=== PATIENT | male | born 1990 | race Caucasian/White ===

== ENCOUNTER 2017-01-08 13:44 | Outpatient (CLI) | payer MEDICAID ==
[2017-01-08 14:08] LABS: BASOPHILS % (AUTO) 0.4 %; EOSINOPHILS # (AUTO) 0.1 10^3/uL (0.0-0.7); EOSINOPHILS % (AUTO) 1.2 %; HCT - HEMATOCRIT 38.2 % (42.0-52.0); HGB - HEMOGLOBIN 13.1 g/dL (14.0-18.0); LYMPHOCYTES # (AUTO) 1.8 10^3/uL (1.5-3.5); LYMPHOCYTES % (AUTO) 17.7 %; MEAN CORPUSCULAR HGB CONC 34.4 g/dL (32.0-36.0); MEAN CORPUSCULAR VOLUME 81.3 fL (80.0-94.0); MEAN PLATELET VOLUME 7.7 fL (7.4-11.4); MONOCYTES # (AUTO) 0.6 10^3/uL (0.0-1.0); MONOCYTES % (AUTO) 6.2 %; NEUTROPHILS # (AUTO) 7.7 10^3/uL (1.5-6.6); NEUTROPHILS % (AUTO) 74.5 %; RED CELL DISTRIBUTION WIDTH 14.8 % (12.0-15.0); UNCORRECTED WHITE BLOOD COUNT 10.3 x10^3/uL; WHITE BLOOD COUNT 10.3 x10^3/uL (4.8-10.8)
== END 2017-01-08 13:45 | disposition home or self-care (01) ==
LOC: LAB 13:44
PROVIDERS: ATTEND Internal Medicine Critical Care Medicine
DX: E84.0 Cystic fibrosis with pulmonary manifestations (principal)
CPT/HCPCS: 36415; 85025

== ENCOUNTER 2017-01-15 09:36 | Outpatient (CLI) | payer MEDICAID ==
[2017-01-15 10:58] LABS: BASOPHILS # (AUTO) 0.1 10^3/uL (0.0-0.1); EOSINOPHILS # (AUTO) 0.2 10^3/uL (0.0-0.7); EOSINOPHILS % (AUTO) 2.8 %; HCT - HEMATOCRIT 41.3 % (42.0-52.0); HGB - HEMOGLOBIN 13.8 g/dL (14.0-18.0); LYMPHOCYTES # (AUTO) 1.9 10^3/uL (1.5-3.5); LYMPHOCYTES % (AUTO) 33.1 %; MEAN CORPUSCULAR HEMOGLOBIN 27.9 pg (27.0-31.0); MEAN CORPUSCULAR HGB CONC 33.5 g/dL (32.0-36.0); MEAN CORPUSCULAR VOLUME 83.3 fL (80.0-94.0); MEAN PLATELET VOLUME 8.3 fL (7.4-11.4); MONOCYTES # (AUTO) 0.3 10^3/uL (0.0-1.0); MONOCYTES % (AUTO) 5.9 %; NEUTROPHILS # (AUTO) 3.3 10^3/uL (1.5-6.6); NEUTROPHILS % (AUTO) 57.2 %; RED BLOOD COUNT 4.97 10^6/uL (4.70-6.10); RED CELL DISTRIBUTION WIDTH 15.2 % (12.0-15.0); UNCORRECTED WHITE BLOOD COUNT 5.7 x10^3/uL; WHITE BLOOD COUNT 5.7 x10^3/uL (4.8-10.8)
== END 2017-01-15 09:37 | disposition home or self-care (01) ==
LOC: LAB 09:36
PROVIDERS: ATTEND Internal Medicine Critical Care Medicine
DX: E84.0 Cystic fibrosis with pulmonary manifestations (principal)
CPT/HCPCS: 36415; 85025

== ENCOUNTER 2017-01-22 09:20 | Outpatient (CLI) | payer MEDICAID ==
[2017-01-22 09:33] LABS: BASOPHILS % (AUTO) 0.9 %; EOSINOPHILS # (AUTO) 0.2 10^3/uL (0.0-0.7); EOSINOPHILS % (AUTO) 3.9 %; HCT - HEMATOCRIT 43.3 % (42.0-52.0); HGB - HEMOGLOBIN 14.7 g/dL (14.0-18.0); LYMPHOCYTES # (AUTO) 1.4 10^3/uL (1.5-3.5); LYMPHOCYTES % (AUTO) 28.1 %; MEAN CORPUSCULAR HEMOGLOBIN 28.5 pg (27.0-31.0); MEAN CORPUSCULAR HGB CONC 34.1 g/dL (32.0-36.0); MEAN CORPUSCULAR VOLUME 83.6 fL (80.0-94.0); MEAN PLATELET VOLUME 7.8 fL (7.4-11.4); MONOCYTES # (AUTO) 0.3 10^3/uL (0.0-1.0); MONOCYTES % (AUTO) 5.9 %; NEUTROPHILS # (AUTO) 3.1 10^3/uL (1.5-6.6); NEUTROPHILS % (AUTO) 61.2 %; RED BLOOD COUNT 5.18 10^6/uL (4.70-6.10); RED CELL DISTRIBUTION WIDTH 16.2 % (12.0-15.0); UNCORRECTED WHITE BLOOD COUNT 5.1 x10^3/uL; WHITE BLOOD COUNT 5.1 x10^3/uL (4.8-10.8)
== END 2017-01-22 09:21 | disposition home or self-care (01) ==
LOC: LAB 09:20
PROVIDERS: ATTEND Internal Medicine Critical Care Medicine
DX: E84.0 Cystic fibrosis with pulmonary manifestations (principal)
CPT/HCPCS: 36415; 85025

== ENCOUNTER 2017-02-03 08:10 | Outpatient (CLI) | payer MEDICAID ==
[2017-02-03 08:55] LABS: BUN - BLOOD UREA NITROGEN 8 mg/dL (6-20); CALCIUM 9.2 mg/dL (8.5-10.3); CARBON DIOXIDE - CO2 31 mmol/L (21-32); CHLORIDE 101 mmol/L (101-111); CREATININE 0.8 mg/dL (0.6-1.2); GFR - MDRD 118 (>89); GLUCOSE 89 mg/dL (70-100); POTASSIUM 4.5 mmol/L (3.5-5.0); SODIUM 138 mmol/L (135-145)
[2017-02-03 09:02] LABS: BASOPHILS % (AUTO) 0.7 %; EOSINOPHILS # (AUTO) 0.3 10^3/uL (0.0-0.7); EOSINOPHILS % (AUTO) 4.5 %; HCT - HEMATOCRIT 42.9 % (42.0-52.0); HGB - HEMOGLOBIN 14.8 g/dL (14.0-18.0); LYMPHOCYTES # (AUTO) 1.4 10^3/uL (1.5-3.5); LYMPHOCYTES % (AUTO) 21.4 %; MEAN CORPUSCULAR HEMOGLOBIN 28.6 pg (27.0-31.0); MEAN CORPUSCULAR HGB CONC 34.4 g/dL (32.0-36.0); MEAN PLATELET VOLUME 8.1 fL (7.4-11.4); MONOCYTES # (AUTO) 0.6 10^3/uL (0.0-1.0); MONOCYTES % (AUTO) 8.6 %; NEUTROPHILS # (AUTO) 4.2 10^3/uL (1.5-6.6); NEUTROPHILS % (AUTO) 64.8 %; NUCLEATED RED BLOOD CELLS AUTO 0.3 /100WBC; RED BLOOD COUNT 5.16 10^6/uL (4.70-6.10); RED CELL DISTRIBUTION WIDTH 16.2 % (12.0-15.0); UNCORRECTED WHITE BLOOD COUNT 6.4 x10^3/uL; WHITE BLOOD COUNT 6.4 x10^3/uL (4.8-10.8)
[2017-02-03 09:46] LABS: PLATELET ESTIMATE, MANUAL NORMAL (130-450,000) (NORMAL); PLATELET MORPHOLOGY NORMAL APPEARANCE (NORMAL); WBC MORPHOLOGY (MULTIPLE) NORMAL APPEARANCE (NORMAL)
== END 2017-02-03 08:11 | disposition home or self-care (01) ==
LOC: LAB 08:10
PROVIDERS: ATTEND Internal Medicine Critical Care Medicine
DX: E84.0 Cystic fibrosis with pulmonary manifestations (principal)
CPT/HCPCS: 36415; 80048; 85025

== ENCOUNTER 2017-02-12 07:59 | Outpatient (CLI) | payer MEDICAID ==
[2017-02-12 08:10] LABS: BASOPHILS % (AUTO) 0.4 %; EOSINOPHILS # (AUTO) 0.2 10^3/uL (0.0-0.7); EOSINOPHILS % (AUTO) 3.7 %; HCT - HEMATOCRIT 42.5 % (42.0-52.0); HGB - HEMOGLOBIN 14.6 g/dL (14.0-18.0); LYMPHOCYTES # (AUTO) 1.4 10^3/uL (1.5-3.5); MEAN CORPUSCULAR HEMOGLOBIN 28.6 pg (27.0-31.0); MEAN CORPUSCULAR HGB CONC 34.3 g/dL (32.0-36.0); MEAN CORPUSCULAR VOLUME 83.4 fL (80.0-94.0); MEAN PLATELET VOLUME 7.7 fL (7.4-11.4); MONOCYTES # (AUTO) 0.4 10^3/uL (0.0-1.0); NEUTROPHILS # (AUTO) 4.6 10^3/uL (1.5-6.6); NEUTROPHILS % (AUTO) 68.9 %; NUCLEATED RED BLOOD CELLS AUTO 0.2 /100WBC; RED BLOOD COUNT 5.09 10^6/uL (4.70-6.10); RED CELL DISTRIBUTION WIDTH 15.7 % (12.0-15.0); UNCORRECTED WHITE BLOOD COUNT 6.6 x10^3/uL; WHITE BLOOD COUNT 6.6 x10^3/uL (4.8-10.8)
[2017-02-12 08:22] LABS: BUN - BLOOD UREA NITROGEN 11 mg/dL (6-20); CALCIUM 8.9 mg/dL (8.5-10.3); CARBON DIOXIDE - CO2 29 mmol/L (21-32); CHLORIDE 104 mmol/L (101-111); CREATININE 0.8 mg/dL (0.6-1.2); GFR - MDRD 118 (>89); GLUCOSE 91 mg/dL (70-100); POTASSIUM 4.6 mmol/L (3.5-5.0); SODIUM 138 mmol/L (135-145)
== END 2017-02-12 08:00 | disposition home or self-care (01) ==
LOC: LAB 07:59
PROVIDERS: ATTEND Internal Medicine Critical Care Medicine
DX: E84.9 Cystic fibrosis, unspecified (principal)
CPT/HCPCS: 36415; 80048; 85025

== ENCOUNTER 2017-03-19 10:18 | Outpatient (CLI) | payer MEDICAID ==
[2017-03-19 11:46] LABS: ABG HCO3 23.4 mmol/L (22.0-26.0); ABG PCO2 35 mmHg (34-45); ABG PH 7.45 (7.35-7.45); ABG PO2 75 mmHg (80-100); ABG TCO2 24.5 MMOL/L (21.0-29.0)
[2017-03-19 11:47] LABS: ABG OXYGEN SATURATION 96 % (94-98); ABG RESPIRATORY RATE 18 b/min; ABG ROOM AIR YES; ABG SATURATION PULSE OXIMETRY% 97 %; ABG SITE OF DRAW RIGHT RADIAL; ALLEN TEST POSITIVE
== END 2017-03-19 10:19 | disposition home or self-care (01) ==
LOC: LAB 10:18
PROVIDERS: ATTEND Internal Medicine Critical Care Medicine
DX: E84.0 Cystic fibrosis with pulmonary manifestations (principal)
CPT/HCPCS: 36600; 82803

== ENCOUNTER 2017-11-21 18:41 | Emergency (ER) | payer MEDICAID ==
[2017-11-21] MEDS ORDERED: METOCLOPRAMIDE 10 MG/2 ML VIAL IVP STA (19:05)
[2017-11-21] MEDS ORDERED: SODIUM CHLORIDE 0.9% 1,000 ML IV ONE (19:05)
[2017-11-21] MEDS ORDERED: KETOROLAC 60 MG/2 ML VIAL IVP STA (19:05)
[2017-11-21] MEDS ORDERED: diphenhydrAMINE INJ 50 MG/ML VIAL IVP STA (19:05)
--- NOTE | 2017-11-21 19:06 | ED Physician Documentation ---
PD HPI HEADACHE - Stated complaint Stated Complaint: HEADACHE,DIZZY - Chief complaint Chief Complaint: General - History obtained from History obtained from: Patient, Family - History of Present Illness Timing - onset: Yesterday Timing - onset during: Rest Timing - details: Gradual onset, Intermittant Location: Back Quality: Aching Associated symptoms: Vision changes. No: Fever, Stiff neck Improved by: Rest Similar symptoms before: Has not had sx before Recently seen: Not recently seen - Additional information Additional information: Patient is a 27 year old male with a history of cystic fibrosis who is presenting to the emergency department for headache. patient states that the symptoms started yesterday with some blurry vision. patient's vision changes have since resolved. Patient states that he still has the headache. patient denie any aggravating or alleviating factors. Review of Systems Ten Systems: 10 systems reviewed and negative Constitutional: denies: Chills Musculoskeletal: denies: Neck pain Neurologic: reports: Headache. denies: Altered mental status, Head injury PD PAST MEDICAL HISTORY - Past Medical History Respiratory: Cystic fibrosis - Past Surgical History Past Surgical History: Yes - Present Medications Home Medications: Ambulatory Orders Medication Instructions Recorded Confirmed Domase Alpha2.5mg/2.5mlinhal Solu 2.5 mg IH DAILY 02/22/13 09/01/17 Lipase/Protease/Amylase [Zenpep Dr 3 each PO TIDWM 02/22/13 09/01/17 15,000/51,000/82,000 Intermediate] Sodium Chloride For Inhalation 15 ml IH BID 02/22/13 09/01/17 [Sodium Chloride] Albuterol Sulfate [Ventolin Hfa] 2 puffs INH Q6HR PRN 08/31/15 09/01/17 - Allergies Allergies/Adverse Reactions: Allergies Allergy/AdvReac Type Severity Reaction Status Date / Time sulfamethoxazole AdvReac Severe Emesis Verified 02/22/13 08:49 [From Bactrim] trimethoprim [From Bactrim] AdvReac Severe Emesis Verified 11/21/17 18:50 - Social History Does the pt smoke?: No Smoking Status: Never smoker Does the pt drink ETOH?: Yes Does the pt have substance abuse?: No - POLST Patient has POLST: No PD ED PE NORMAL - Vitals Vital signs reviewed: Yes - General General: Alert and oriented X 3, No acute distress, Well developed/nourished - HEENT HEENT: Atraumatic - Neck Neck: Supple, no meningeal sign - Cardiac Cardiac: RRR - Respiratory Respiratory: No respiratory distress - Derm Derm: Normal color, Warm and dry - Extremities Extremities: No deformity Results - Vitals Vitals: Vital Signs - 24 hr 11/21/17 11/21/17 11/21/17 18:48 20:09 20:16 Temperature 36.7 C Heart Rate 79 77 Respiratory 18 16 16 Rate Blood Pressure 111/67 110/61 O2 Saturation 99 97 11/21/17 20:41 Temperature Heart Rate Respiratory 16 Rate Blood Pressure 96/69 O2 Saturation Oxygen O2 Source Room air - Rads (name of study) ct head Radiology: Final report received (normal) PD MEDICAL DECISION MAKING - ED course Complexity details: reviewed old records, reviewed results, re-evaluated patient , considered differential, d/w patient, d/w family ED course: patient was seen and examined at bedside. imaging was ordered. When patient returned from imaging patient was treated with toradol, fluids, reglan and benadryl. Upon re-evaluaiton patient was feeling much better. patient required no further work up and was stable for discharge with outpatient follow up. - Sepsis Event Vital Signs: Vital Signs - 24 hr 11/21/17 11/21/17 11/21/17 18:48 20:09 20:16 Temperature 36.7 C Heart Rate 79 77 Respiratory 18 16 16 Rate Blood Pressure 111/67 110/61 O2 Saturation 99 97 11/21/17 20:41 Temperature Heart Rate Respiratory 16 Rate Blood Pressure 96/69 O2 Saturation Oxygen O2 Source Room air Departure - Departure Disposition: 01 Home, Self Care Clinical Impression: Headache Condition: Good Instructions: ED Headache Tension Follow-Up: Marie Ovalle MD [Primary Care Provider] - As Needed Comments: Your diagnostics today are within normal limits. there is no acute abnormality on CT. You should make sure you stay well hydrated and get plenty of sleep as those are two of the biggest culprits. You can take tylenol or ibuprofen as needed and follow up with your doctor if these headache get more frequent. You may return to the emergency department at any time for new, worsening or uncontrollable symptoms.
--- NOTE | 2017-11-21 19:33 | CT Report ---
Procedure Date: 11/21/2017 Accession Number: [id number] / [id number] Procedure: CT - Head W/O CPT Code: FULL RESULT: EXAM: CT HEAD EXAM DATE: 11/21/2017 07:23 PM. CLINICAL HISTORY: Headache. Blurred vision. Dizziness. COMPARISON: None. TECHNIQUE: Multiaxial CT images were obtained from the foramen magnum to the vertex. Reformats: Coronal. IV contrast: None. In accordance with CT protocol optimization, one or more of the following dose reduction techniques were utilized for this exam: automated exposure control, adjustment of mA and/or KV based on patient size, or use of iterative reconstructive technique. FINDINGS: Parenchyma: No intraparenchymal hemorrhage. No evidence of mass, midline shift, or CT findings of infarction. Alvares-white differentiation is distinct. Extraaxial Spaces: Normal for age. No subdural or epidural collections identified. Ventricles: Normal in size and position. Sinuses and Orbits: Marked bilateral ethmoid and left sphenoid sinus mucosal thickening. Frontal sinuses are hypoplastic. Mastoids and middle ears are clear. Orbits are unremarkable. Bones: Persistent metopic suture. No fracture. Other: None. IMPRESSION: 1. Marked bilateral ethmoid and left sphenoid sinus mucosal thickening consistent with sinusitis. 2. Normal noncontrast CT of the brain. RADIA
[2017-11-21 21:01] VITALS: BP 108/69
== END 2017-11-21 21:04 | disposition home or self-care (01) ==
LOC: ED 18:41
DX: R51 Headache (principal); E84.9 Cystic fibrosis, unspecified
CPT/HCPCS: 70450; 96361; 96374; 96375; 99283; J1200; J2765

== ENCOUNTER 2018-02-17 12:11 | Outpatient (CLI) | payer MEDICAID ==
[2018-02-17 13:26] LABS: BASOPHILS % (AUTO) 0.4 %; EOSINOPHILS # (AUTO) 0.1 10^3/uL (0.0-0.7); EOSINOPHILS % (AUTO) 1.2 %; HGB - HEMOGLOBIN 13.4 g/dL (14.0-18.0); LYMPHOCYTES # (AUTO) 1.3 10^3/uL (1.5-3.5); LYMPHOCYTES % (AUTO) 11.8 %; MEAN CORPUSCULAR HEMOGLOBIN 27.7 pg (27.0-31.0); MEAN CORPUSCULAR HGB CONC 34.3 g/dL (32.0-36.0); MEAN CORPUSCULAR VOLUME 80.7 fL (80.0-94.0); MEAN PLATELET VOLUME 8.5 fL (7.4-11.4); MONOCYTES # (AUTO) 0.7 10^3/uL (0.0-1.0); MONOCYTES % (AUTO) 6.6 %; NEUTROPHILS # (AUTO) 8.8 10^3/uL (1.5-6.6); PLT - PLATELET COUNT 238 10^3/uL (130-450); RED BLOOD COUNT 4.85 10^6/uL (4.70-6.10); RED CELL DISTRIBUTION WIDTH 14.2 % (12.0-15.0)
== END 2018-02-17 12:12 | disposition home or self-care (01) ==
LOC: LAB 12:11
PROVIDERS: ATTEND Internal Medicine Pulmonary Disease
DX: E84.9 Cystic fibrosis, unspecified (principal)
CPT/HCPCS: 36415; 85025

== ENCOUNTER 2018-02-20 08:24 | Outpatient (CLI) | payer MEDICAID ==
[2018-02-20 08:39] LABS: BASOPHILS # (AUTO) 0.1 10^3/uL (0.0-0.1); BASOPHILS % (AUTO) 0.6 %; EOSINOPHILS # (AUTO) 0.2 10^3/uL (0.0-0.7); EOSINOPHILS % (AUTO) 3.2 %; HGB - HEMOGLOBIN 13.7 g/dL (14.0-18.0); LYMPHOCYTES # (AUTO) 1.2 10^3/uL (1.5-3.5); LYMPHOCYTES % (AUTO) 15.5 %; MEAN CORPUSCULAR HEMOGLOBIN 27.9 pg (27.0-31.0); MEAN CORPUSCULAR HGB CONC 34.2 g/dL (32.0-36.0); MEAN CORPUSCULAR VOLUME 81.5 fL (80.0-94.0); MEAN PLATELET VOLUME 7.9 fL (7.4-11.4); MONOCYTES # (AUTO) 0.4 10^3/uL (0.0-1.0); MONOCYTES % (AUTO) 4.6 %; NEUTROPHILS # (AUTO) 5.9 10^3/uL (1.5-6.6); NEUTROPHILS % (AUTO) 76.1 %; PLT - PLATELET COUNT 223 10^3/uL (130-450); RED BLOOD COUNT 4.93 10^6/uL (4.70-6.10); RED CELL DISTRIBUTION WIDTH 14.4 % (12.0-15.0); WHITE BLOOD COUNT 7.8 x10^3/uL (4.8-10.8)
== END 2018-02-20 08:25 | disposition home or self-care (01) ==
LOC: LAB 08:24
PROVIDERS: ATTEND Internal Medicine Pulmonary Disease
DX: E84.0 Cystic fibrosis with pulmonary manifestations (principal)
CPT/HCPCS: 36415; 85025

== ENCOUNTER 2018-02-25 08:53 | Outpatient (CLI) | payer MEDICAID ==
[2018-02-25 09:18] LABS: BASOPHILS % (AUTO) 0.5 %; EOSINOPHILS # (AUTO) 0.2 10^3/uL (0.0-0.7); EOSINOPHILS % (AUTO) 3.2 %; HGB - HEMOGLOBIN 13.4 g/dL (14.0-18.0); LYMPHOCYTES # (AUTO) 1.3 10^3/uL (1.5-3.5); LYMPHOCYTES % (AUTO) 22.2 %; MEAN CORPUSCULAR HEMOGLOBIN 27.6 pg (27.0-31.0); MEAN CORPUSCULAR HGB CONC 33.7 g/dL (32.0-36.0); MEAN PLATELET VOLUME 7.6 fL (7.4-11.4); MONOCYTES # (AUTO) 0.3 10^3/uL (0.0-1.0); MONOCYTES % (AUTO) 4.3 %; NEUTROPHILS # (AUTO) 4.1 10^3/uL (1.5-6.6); NEUTROPHILS % (AUTO) 69.8 %; PLT - PLATELET COUNT 221 10^3/uL (130-450); RED BLOOD COUNT 4.84 10^6/uL (4.70-6.10); RED CELL DISTRIBUTION WIDTH 14.4 % (12.0-15.0); WHITE BLOOD COUNT 5.8 x10^3/uL (4.8-10.8)
== END 2018-02-25 08:54 | disposition home or self-care (01) ==
LOC: LAB 08:53
PROVIDERS: ATTEND Internal Medicine Pulmonary Disease
DX: E84.0 Cystic fibrosis with pulmonary manifestations (principal)
CPT/HCPCS: 36415; 85025

== ENCOUNTER 2018-06-04 09:13 | Outpatient (CLI) | payer MEDICAID ==
[2018-06-04 09:40] LABS: BASOPHILS % (AUTO) 0.3 %; EOSINOPHILS # (AUTO) 0.1 10^3/uL (0.0-0.7); EOSINOPHILS % (AUTO) 1.8 %; HGB - HEMOGLOBIN 14.1 g/dL (14.0-18.0); LYMPHOCYTES # (AUTO) 1.3 10^3/uL (1.5-3.5); LYMPHOCYTES % (AUTO) 17.9 %; MEAN CORPUSCULAR HEMOGLOBIN 27.8 pg (27.0-31.0); MEAN CORPUSCULAR VOLUME 81.7 fL (80.0-94.0); MEAN PLATELET VOLUME 8.1 fL (7.4-11.4); MONOCYTES # (AUTO) 0.3 10^3/uL (0.0-1.0); MONOCYTES % (AUTO) 4.6 %; NEUTROPHILS # (AUTO) 5.3 10^3/uL (1.5-6.6); NEUTROPHILS % (AUTO) 75.4 %; PLT - PLATELET COUNT 246 10^3/uL (130-450); RED BLOOD COUNT 5.06 10^6/uL (4.70-6.10); RED CELL DISTRIBUTION WIDTH 14.1 % (12.0-15.0)
== END 2018-06-04 09:14 | disposition home or self-care (01) ==
LOC: LAB 09:13
PROVIDERS: ATTEND Internal Medicine Pulmonary Disease
DX: E84.0 Cystic fibrosis with pulmonary manifestations (principal)
CPT/HCPCS: 36415; 85025

== ENCOUNTER 2018-06-09 09:57 | Outpatient (CLI) | payer MEDICAID ==
[2018-06-09 10:28] LABS: BASOPHILS % (AUTO) 0.2 %; EOSINOPHILS # (AUTO) 0.1 10^3/uL (0.0-0.7); EOSINOPHILS % (AUTO) 0.7 %; HGB - HEMOGLOBIN 14.9 g/dL (14.0-18.0); LYMPHOCYTES % (AUTO) 10.8 %; MEAN CORPUSCULAR HEMOGLOBIN 27.9 pg (27.0-31.0); MEAN CORPUSCULAR HGB CONC 33.9 g/dL (32.0-36.0); MEAN CORPUSCULAR VOLUME 82.4 fL (80.0-94.0); MEAN PLATELET VOLUME 8.7 fL (7.4-11.4); MONOCYTES # (AUTO) 0.5 10^3/uL (0.0-1.0); NEUTROPHILS # (AUTO) 7.7 10^3/uL (1.5-6.6); NEUTROPHILS % (AUTO) 83.3 %; PLT - PLATELET COUNT 247 10^3/uL (130-450); RED BLOOD COUNT 5.35 10^6/uL (4.70-6.10); RED CELL DISTRIBUTION WIDTH 14.2 % (12.0-15.0); WHITE BLOOD COUNT 9.3 x10^3/uL (4.8-10.8)
== END 2018-06-09 09:58 | disposition home or self-care (01) ==
LOC: LAB 09:57
PROVIDERS: ATTEND Internal Medicine Pulmonary Disease
DX: E84.0 Cystic fibrosis with pulmonary manifestations (principal)
CPT/HCPCS: 36415; 85025

== ENCOUNTER 2018-06-11 09:35 | Outpatient (CLI) | payer MEDICAID ==
[2018-06-11 10:13] LABS: BASOPHILS % (AUTO) 0.2 %; EOSINOPHILS # (AUTO) 0.1 10^3/uL (0.0-0.7); EOSINOPHILS % (AUTO) 0.9 %; HGB - HEMOGLOBIN 13.8 g/dL (14.0-18.0); LYMPHOCYTES # (AUTO) 1.1 10^3/uL (1.5-3.5); LYMPHOCYTES % (AUTO) 16.5 %; MEAN CORPUSCULAR HGB CONC 33.8 g/dL (32.0-36.0); MEAN CORPUSCULAR VOLUME 82.8 fL (80.0-94.0); MEAN PLATELET VOLUME 8.5 fL (7.4-11.4); MONOCYTES # (AUTO) 0.3 10^3/uL (0.0-1.0); MONOCYTES % (AUTO) 4.8 %; NEUTROPHILS # (AUTO) 5.1 10^3/uL (1.5-6.6); NEUTROPHILS % (AUTO) 77.6 %; PLT - PLATELET COUNT 209 10^3/uL (130-450); RED BLOOD COUNT 4.93 10^6/uL (4.70-6.10); RED CELL DISTRIBUTION WIDTH 14.3 % (12.0-15.0); WHITE BLOOD COUNT 6.6 x10^3/uL (4.8-10.8)
== END 2018-06-11 09:36 | disposition home or self-care (01) ==
LOC: LAB 09:35
PROVIDERS: ATTEND Internal Medicine Pulmonary Disease
DX: E89.0 Postprocedural hypothyroidism (principal)
CPT/HCPCS: 36415; 85025

== ENCOUNTER 2018-06-23 13:39 | Emergency (ER) | payer MEDICAID ==
[2018-06-23] MEDS ORDERED: SODIUM CHLORIDE 0.9% 1,500 ML IV STA (13:57)
[2018-06-23 14:14] LABS: BASOPHILS % (AUTO) 0.5 %; HGB - HEMOGLOBIN 12.9 g/dL (14.0-18.0); LYMPHOCYTES # (AUTO) 0.6 10^3/uL (1.5-3.5); LYMPHOCYTES % (AUTO) 6.8 %; MEAN CORPUSCULAR HEMOGLOBIN 28.1 pg (27.0-31.0); MEAN CORPUSCULAR HGB CONC 34.3 g/dL (32.0-36.0); MEAN CORPUSCULAR VOLUME 81.9 fL (80.0-94.0); MEAN PLATELET VOLUME 8.6 fL (7.4-11.4); MONOCYTES # (AUTO) 0.9 10^3/uL (0.0-1.0); MONOCYTES % (AUTO) 11.1 %; NEUTROPHILS # (AUTO) 6.7 10^3/uL (1.5-6.6); NEUTROPHILS % (AUTO) 81.6 %; PLT - PLATELET COUNT 223 10^3/uL (130-450); RED BLOOD COUNT 4.58 10^6/uL (4.70-6.10); RED CELL DISTRIBUTION WIDTH 14.6 % (12.0-15.0); WHITE BLOOD COUNT 8.3 x10^3/uL (4.8-10.8)
[2018-06-23] MEDS ORDERED: IPRATROPIUM/ALBUTEROL 3 ML NEB INH STA (14:23)
[2018-06-23] MEDS ORDERED: IPRATROPIUM/ALBUTEROL 3 ML NEB INH ONE (14:28)
[2018-06-23 14:36] LABS: ALBUMIN 3.5 g/dL (3.2-5.5); ALBUMIN/GLOBULIN RATIO 0.8 (1.0-2.2); BILIRUBIN,TOTAL 0.5 mg/dL (0.2-1.0); CALCIUM 8.4 mg/dL (8.5-10.3); CREATININE 0.7 mg/dL (0.6-1.2); TOTAL PROTEIN 7.8 g/dL (6.7-8.2)
[2018-06-23] MEDS ORDERED: HYPERTONIC INH STA (14:58)
[2018-06-23] MEDS ORDERED: SODIUM CHLORIDE 3% INH STA (14:58)
--- NOTE | 2018-06-23 15:08 | XRAY Report ---
Reason: SOA Procedure Date: 06/23/2018 Accession Number: [id number] / [id number] Procedure: XR - Chest 1 View X-Ray CPT Code: 40787 FULL RESULT: EXAM: CHEST RADIOGRAPHY EXAM DATE: 06/23/2018 02:25 PM. CLINICAL HISTORY: Cystic fibrosis, productive cough, short of breath. COMPARISON: CHEST 2 VIEW PA/LAT 09/19/2015 8:01 AM. TECHNIQUE: 1 view. FINDINGS: Lungs/Pleura: Extensive patchy bilateral infiltration with a finely nodular pattern. Underlying upper lobe chronic changes. No consolidation, effusion, or pneumothorax. Mediastinum: Within exam limitations, the cardiomediastinal contour is normal. Upper lobe vessels not distended. Other: Right Port-A-Cath. Scoliosis. IMPRESSION: Bilateral nodular infiltrates in a patient with underlying chronic lung disease. The nodular pattern suggests viral or mycoplasmal etiology. RADIA
[2018-06-23] MEDS ORDERED: SULFAMETH/TRIMETH DS 800/160 MG TABLET PO STA (16:40)
[2018-06-23] MEDS ORDERED: levoFLOXacin 250 MG TABLET PO STA (16:40)
[2018-06-23] MEDS ORDERED: ACETAMINOPHEN 500 MG TABLET PO STA (16:44)
--- NOTE | 2018-06-23 18:44 | ED Physician Documentation ---
PD HPI DYSPNEA - Stated complaint Stated Complaint: SOA - Chief complaint Chief Complaint: Resp - History obtained from History obtained from: Patient - History of Present Illness Timing - onset: How many hours ago (6) Timing - onset during: Light activity Timing - duration: Hours (6) Timing - details: Gradual onset Pain level max: 2 Pain level now: 2 Severity Comments: moderate Inciting event(s): Other (CF) Improved by: O2 Worsened by: Exertion Associated symptoms: Fever, Cough Similar symptoms before: Diagnosis (CF) Review of Systems Ten Systems: 10 systems reviewed and negative Constitutional: reports: Reviewed and negative Eyes: reports: Reviewed and negative Ears: reports: Reviewed and negative Nose: reports: Reviewed and negative Throat: reports: Reviewed and negative Cardiac: reports: Reviewed and negative Respiratory: reports: Reviewed and negative GI: reports: Reviewed and negative : reports: Reviewed and negative Skin: reports: Reviewed and negative Musculoskeletal: reports: Reviewed and negative Neurologic: reports: Reviewed and negative Psychiatric: reports: Reviewed and negative Endocrine: reports: Reviewed and negative Immunocompromised: reports: Reviewed and negative PD PAST MEDICAL HISTORY - Past Medical History Past Medical History: No Cardiovascular: None Respiratory: Cystic fibrosis Neuro: None Endocrine/Autoimmune: None GI: None : None HEENT: None Psych: None Musculoskeletal: None Derm: None - Past Surgical History Past Surgical History: Yes Derm: Other (Reviewed and not pertinent) - Present Medications Home Medications: Ambulatory Orders Medication Instructions Recorded Confirmed Domase Alpha2.5mg/2.5mlinhal Solu 2.5 mg IH DAILY 02/22/13 06/05/18 Lipase/Protease/Amylase [Zenpep Dr 3 each PO TIDWM 02/22/13 06/05/18 15,000/51,000/82,000 Longterm] Sodium Chloride For Inhalation 15 ml IH BID 02/22/13 06/05/18 [Sodium Chloride] Albuterol Sulfate [Ventolin Hfa] 2 puffs INH Q6HR PRN 08/31/15 06/05/18 Celecoxib [CeleBREX] 100 mg PO BID 05/05/18 06/05/18 Levofloxacin [Levaquin] 750 mg PO DAILY #14 tablet 06/23/18 Minocycline HCl 100 mg PO BID #28 capsule 06/23/18 Sulfamethox/Trimeth 800/160 2 each PO BID #28 tablet 01/15/19 [Bactrim Ds 800/160] - Allergies Allergies/Adverse Reactions: Allergies Allergy/AdvReac Type Severity Reaction Status Date / Time sulfamethoxazole AdvReac Severe Emesis Verified 02/22/13 08:49 [From Bactrim] trimethoprim [From Bactrim] AdvReac Severe Emesis Verified 11/21/17 18:50 - Living Situation Living Situation: reports: With family Living Arrangement: reports: At home - Social History Does the pt smoke?: No Smoking Status: Never smoker Does the pt drink ETOH?: No Does the pt have substance abuse?: No - Family History Family history: reports: Other (Reviewed and not pertinent) - Immunizations Immunizations are current?: Yes - POLST Patient has POLST: No PD ED PE NORMAL - Vitals Vital signs reviewed: Yes - General General: Alert and oriented X 3, No acute distress - HEENT HEENT: PERRL - Neck Neck: Supple, no meningeal sign - Cardiac Cardiac: RRR, No murmur - Respiratory Respiratory: Other (Coarse breath sounds, moderate respiratory distress) - Abdomen Abdomen: Normal bowel sounds, Soft, Non tender, Non distended - Derm Derm: Warm and dry - Extremities Extremities: No deformity - Neuro Neuro: Alert and oriented X 3 - Psych Psych: Normal mood, Normal affect Results - Vitals Vitals: Vital Signs - 24 hr 06/23/18 06/23/18 06/23/18 13:40 14:02 14:30 Temperature 37.9 C H 38.1 C H Heart Rate 136 H 124 H 113 H Respiratory 38 H 20 14 Rate Blood Pressure 143/78 H 116/64 O2 Saturation 92 95 98 06/23/18 06/23/18 06/23/18 14:35 15:00 15:19 Temperature Heart Rate 108 H 104 H 113 H Respiratory 24 20 30 H Rate Blood Pressure 118/70 O2 Saturation 99 06/23/18 06/23/18 06/23/18 15:30 15:58 16:30 Temperature 38.6 C H Heart Rate 109 H 114 H 108 H Respiratory 15 38 H 31 H Rate Blood Pressure 117/64 116/64 112/58 L O2 Saturation 8 L 95 98 06/23/18 06/23/18 06/23/18 17:00 17:30 18:51 Temperature 36.8 C 36.9 C Heart Rate 98 105 H 99 Respiratory 24 27 H 22 Rate Blood Pressure 102/49 L 102/48 L 98/67 O2 Saturation 96 96 94 Oxygen O2 Source Room air Oxygen Flow Rate 2 - Labs Labs: Microbiology 06/23/18 15:30 Respiratory Culture - Preliminary Mouth Laboratory Tests 06/23/18 06/23/18 06/23/18 14:00 14:00 14:00 WBC 8.3 RBC 4.58 L Hgb 12.9 L Hct 37.5 L MCV 81.9 MCH 28.1 MCHC 34.3 RDW 14.6 Plt Count 223 MPV 8.6 Neut # (Auto) 6.7 H Lymph # (Auto) 0.6 L Murray # (Auto) 0.9 Eos # (Auto) 0.0 Baso # (Auto) 0.0 Absolute Nucleated RBC 0.00 Nucleated RBC % 0.0 Sodium 133 L Potassium 3.8 Chloride 98 L Carbon Dioxide 28 Anion Gap 7.0 BUN 14 Creatinine 0.7 Estimated GFR (MDRD) 136 Glucose 131 H Lactic Acid 1.7 Calcium 8.4 L Total Bilirubin 0.5 AST 31 ALT 43 Alkaline Phosphatase 134 H Total Protein 7.8 Albumin 3.5 Globulin 4.3 H Albumin/Globulin Ratio 0.8 L Lipase 17 L Influenza A (Rapid) Influenza B (Rapid) 06/23/18 17:27 WBC RBC Hgb Hct MCV MCH MCHC RDW Plt Count MPV Neut # (Auto) Lymph # (Auto) Murray # (Auto) Eos # (Auto) Baso # (Auto) Absolute Nucleated RBC Nucleated RBC % Sodium Potassium Chloride Carbon Dioxide Anion Gap BUN Creatinine Estimated GFR (MDRD) Glucose Lactic Acid Calcium Total Bilirubin AST ALT Alkaline Phosphatase Total Protein Albumin Globulin Albumin/Globulin Ratio Lipase Influenza A (Rapid) Negative Influenza B (Rapid) Negative - Rads (name of study) Chest xray Radiology: Final report received (Nodular opacities bilaterally.) PD MEDICAL DECISION MAKING - ED course Complexity details: reviewed old records, reviewed results, re-evaluated patient, considered differential, d/w patient, d/w family, d/w safety consultant ED course: 27-year-old male with history of cystic fibrosis followed by Dr. Alarcon at [facility]. Patient presents with cough, fever, shortness of breath. Patient is in significant respiratory distress on arrival that improved with supplemental oxygen and breathing treatments. Chest x-ray shows nodular opacities. Patient is febrile but without a white count. I reviewed patient's physical exam, clinical course, labs and chest x-ray with his special effects person. I also discussed patient's condition with the patient. Patient was confident that he could discharge home with a trial of oral antibiotics and will return if his symptoms worsen. [employer] was in agreement with this and made recommendations of p.o. antibiotics based on recent cultures of Bactrim DS 2 tabs twice daily, minocycline 100 mg twice daily, Levaquin 750 mg daily with clinic follow-up in the morning. Return precautions were reviewed. Patient disch arged home. Departure - Departure Disposition: , Self Care Clinical Impression: Cystic fibrosis exacerbation Pneumonia Qualifiers: Pneumonia type: due to unspecified organism Laterality: bilateral Lung location : unspecified part of lung Qualified Code(s): J18.9 - Pneumonia, unspecified organism Condition: Good Instructions: Pneumonia Dc Follow-Up: SAGAR ALARCON MD [Physician No Access] - Prescriptions: Levofloxacin [Levaquin] 750 mg PO DAILY #14 tablet Minocycline HCl 100 mg PO BID #28 capsule Sulfamethox/Trimeth 800/160 [Bactrim Ds 800/160] 2 each PO BID #28 tablet Comments: Follow up w Dr. Alarcon tomorrow am. Take antibiotics as prescribed. Be very strict about doing CPT therapy. Return with worsening symptoms for admission and IV antibiotics. Discharge Date/Time: 06/23/18 18:56
[2018-06-23 18:52] VITALS: BP 98/67
== END 2018-06-23 18:56 | disposition home or self-care (01) ==
LOC: ED 13:39
DX: E84.9 Cystic fibrosis, unspecified (principal); J18.9 Pneumonia, unspecified organism
CPT/HCPCS: 36415; 71045; 80053; 83605; 83690; 85025; 87040; 87070; 87181; 87205; 87275; 87276; 94640; 96360; 96361; 99283; 99284; A9270

== ENCOUNTER 2018-06-26 15:05 | Emergency (ER) | payer MEDICAID ==
[2018-06-26 15:18] VITALS: BP 119/64
== END 2018-06-26 17:20 | disposition left against medical advice (07) ==
LOC: ED 15:05
DX: R06.2 Wheezing (principal); R04.2 Hemoptysis; R51 Headache; Z53.21 Procedure and treatment not carried out due to patient leaving prior to being seen by health care provider

== ENCOUNTER 2018-12-09 10:03 | Outpatient (CLI) | payer MEDICAID ==
--- NOTE | 2018-12-09 14:31 | XRAY Report ---
Reason: ANKLE PAIN,RIGHT Procedure Date: 12/09/2018 Accession Number: [id number] / [id number] Procedure: WCP - Ankle 3 View RT CPT Code: FULL RESULT: EXAM: RIGHT ANKLE RADIOGRAPHY EXAM DATE: 12/09/2018 10:19 AM. CLINICAL HISTORY: ANKLE Pain, right. COMPARISON: XR ANKLE COMPLETE MIN 3 VIEW 02/28/2011 3:39 PM. TECHNIQUE: 3 views. FINDINGS: Bones: Normal. No fractures or bone lesions. Joints: Normal. No effusion. No subluxations. The ankle mortise is normally aligned. Soft Tissues: Normal. No soft tissue swelling. IMPRESSION: Normal ankle radiography. RADIA
== END 2018-12-09 10:04 | disposition home or self-care (01) ==
LOC: DI.WCP 10:03
PROVIDERS: ATTEND Family Medicine
DX: M25.571 Pain in right ankle and joints of right foot (principal)

== ENCOUNTER 2018-12-15 10:12 | Emergency (ER) | payer MEDICAID ==
[2018-12-15] MEDS ORDERED: BUPIVACAINE 0.5%-EPI 1:200000 PF 30 ML VIAL SUBQ ONE (11:09)
[2018-12-15] MEDS ORDERED: diazePAM INJ 5 MG/ML SYRINGE IM STA (11:10)
--- NOTE | 2018-12-15 11:12 | ED Physician Documentation ---
PD HPI NECK PAIN - Stated complaint Stated Complaint: NECK PX - Chief complaint Chief Complaint: Back Pain - History obtained from History obtained from: Patient - History of Present Illness Timing - onset: How many days ago (4) Timing - duration: Days (4) Timing - details: Gradual onset, Still present Location: Mid, Other (posterior neck) Quality: Pain, Other (stiffness) Associated symptoms: No: Fever, Weakness, Numbness, Incontinent of urine, Unable to urinate, Hematuria, Incontinent of stool Improves with: Nothing Worsened by: Movement Contributing factors: Other (unknown but pt states perhaps after work) Similar symptoms before: Has not had sx before Recently seen: Not recently seen - Treatment prior to arrival Treatment prior to arrival: baclofen without relief - Additional information Additional information: no prior injury, no hx of trauma/MVC. no prior surgery. no headache Review of Systems Ten Systems: 10 systems reviewed and negative Constitutional: denies: Fever, Chills Throat: reports: Reviewed and negative Cardiac: reports: Reviewed and negative Respiratory: reports: Reviewed and negative GI: reports: Reviewed and negative Skin: reports: Reviewed and negative Musculoskeletal: reports: Neck pain. denies: Back pain, Extremity pain, Joint pain, Extremity swelling, Joint swelling Neurologic: denies: Focal weakness, Numbness, Headache, Head injury, LOC Immunocompromised: reports: Reviewed and negative PD PAST MEDICAL HISTORY - Past Medical History Past Medical History: Yes Cardiovascular: None Respiratory: Cystic fibrosis Neuro: None Endocrine/Autoimmune: None GI: None : None HEENT: None Psych: None Musculoskeletal: None Derm: None - Past Surgical History Past Surgical History: Yes Derm: Other - Present Medications Home Medications: Ambulatory Orders Medication Instructions Recorded Confirmed Domase Alpha2.5mg/2.5mlinhal Solu 2.5 mg IH DAILY 02/22/13 08/28/18 Lipase/Protease/Amylase [Zenpep Dr 3 each PO TIDWM 02/22/13 08/28/18 15,000/51,000/82,000 Custodial] Sodium Chloride For Inhalation 15 ml IH BID 02/22/13 08/28/18 [Sodium Chloride] RX: Albuterol Sulfate [Ventolin 2 puffs INH Q6HR PRN 08/31/15 08/28/18 Hfa] Celecoxib [CeleBREX] 100 mg PO BID 05/05/18 08/28/18 Levofloxacin [Levaquin] 750 mg PO DAILY #14 tablet 06/23/18 08/28/18 RX: Minocycline HCl 100 mg PO BID #28 capsule 06/23/18 08/28/18 Sulfamethox/Trimeth 800/160 2 each PO BID #28 tablet 06/23/18 08/28/18 [Bactrim Ds 800/160] - Allergies Allergies/Adverse Reactions: Allergies Allergy/AdvReac Type Severity Reaction Status Date / Time sulfamethoxazole AdvReac Severe Emesis Verified 06/26/18 15:11 [From Bactrim] trimethoprim [From Bactrim] AdvReac Severe Emesis Verified 06/26/18 15:11 - Social History Does the pt smoke?: No Smoking Status: Never smoker Does the pt drink ETOH?: No Does the pt have substance abuse?: No - Immunizations Immunizations are current?: Yes - POLST Patient has POLST: No PD ED PE NORMAL - Vitals Vital signs reviewed: Yes - General General: Alert and oriented X 3, No acute distress, Well developed/nourished - HEENT HEENT: Atraumatic, PERRL, Moist mucous membranes, Pharynx benign - Neck Neck: Supple, no meningeal sign, No bony TTP, No JVD - Cardiac Cardiac: RRR, No murmur, No gallop, No rub - Respiratory Respiratory: No respiratory distress, Clear bilaterally - Abdomen Abdomen: Soft, Non distended - Male Male : Deferred - Rectal Rectal: Deferred - Back Back: No spinal TTP - Derm Derm: Normal color, Warm and dry, No rash - Extremities Extremities: No deformity - Neuro Neuro: Alert and oriented X 3, No motor deficit, No sensory deficit Eye Opening: Spontaneous Motor: Obeys Commands Verbal: Oriented GCS Score: 15 - Psych Psych: Normal mood, Normal affect PD ED PE EXPANDED - Neck Neck: Stiff neck, Soft tissue TTP, Limited ROM (laterally due to pain.). No: Bony TTP Results - Vitals Vitals: Oxygen O2 Source Room air Procedures - General procedure General procedure: Bilateral posterior paraspinal neck trigger point injections iwth 0.5% bupivacaine with epinephrine - 4cc per side. No complications. PD MEDICAL DECISION MAKING - ED course Complexity details: re-evaluated patient, considered differential, d/w patient, d/w family ED course: ddx- cervical strain, whiplash, cervical vertebral fracture, torticollis, meningitis, 28 y/o M with atraumatic neck stiffness for 4 days, mild pain bilaterally but mostly just feels stiff. Pt appears well. Has no fever. No neuro symptoms, normal neuro examination, normal strength. Some improvement with valium here. Pt given trigger pt injections also with some improvement. He is stable for further outpt f/u Departure - Departure Disposition: 01 Home, Self Care Clinical Impression: Neck muscle strain Qualifiers: Encounter type: initial encounter Qualified Code(s): S16.1XXA - Strain of muscle, fascia and tendon at neck level, initial encounter Condition: Stable Record reviewed to determine appropriate education?: Yes Instructions: ED Sprain Strain Neck Follow-Up: Marie Ovalle MD [Primary Care Provider] - Discharge Date/Time: 12/15/18 12:29
[2018-12-15] MEDS ORDERED: BUPIVACAINE 0.5%-EPI 1:200000 PF 10 ML VIAL SUBQ STA (11:40)
[2018-12-15 12:27] VITALS: BP 114/71
== END 2018-12-15 12:29 | disposition home or self-care (01) ==
LOC: ED 10:12
DX: S16.1XXA Strain of muscle, fascia and tendon at neck level, initial encounter (principal); X58.XXXA Exposure to other specified factors, initial encounter; E84.9 Cystic fibrosis, unspecified
CPT/HCPCS: 20552; 99282; 99283

== ENCOUNTER 2019-04-14 08:00 | Outpatient (CLI) | payer MEDICAID ==
[2019-04-14 19:43] LABS: CALCIUM 8.7 mg/dL (8.5-10.3); CREATININE 0.7 mg/dL (0.6-1.2)
[2019-04-17 18:56] LABS: CMV DNA QN RT PCR <200 IU/mL; SOURCE PLASMA
== END 2019-04-14 23:59 | disposition home or self-care (01) ==
LOC: LAB.R 08:00
PROVIDERS: ATTEND Internal Medicine
DX: Z94.2 Lung transplant status (principal); Z79.899 Other long term (current) drug therapy
CPT/HCPCS: 80048; 80197; 87497

== ENCOUNTER 2019-06-29 08:02 | Outpatient (CLI) | payer MEDICAID ==
[2019-06-29 08:33] LABS: CALCIUM 7.8 mg/dL (8.5-10.3); CREATININE 1.1 mg/dL (0.6-1.2)
[2019-07-02 03:03] LABS: CMV DNA QN RT PCR 12502 IU/mL; SOURCE PLASMA
== END 2019-06-29 08:03 | disposition home or self-care (01) ==
LOC: LAB 08:02
PROVIDERS: ATTEND Internal Medicine
DX: Z94.2 Lung transplant status (principal); Z79.899 Other long term (current) drug therapy
CPT/HCPCS: 36415; 80048; 80197; 87497

== ENCOUNTER 2019-06-30 12:05 | Outpatient (CLI) | payer MEDICAID ==
[2019-06-30 13:04] LABS: BASOPHILS % (AUTO) 1.3 %; EOSINOPHILS # (AUTO) 0.1 10^3/uL (0.0-0.7); EOSINOPHILS % (AUTO) 5.3 %; HGB - HEMOGLOBIN 10.9 g/dL (14.0-18.0); LYMPHOCYTES # (AUTO) 0.6 10^3/uL (1.5-3.5); LYMPHOCYTES % (AUTO) 41.4 %; MEAN CORPUSCULAR HEMOGLOBIN 28.2 pg (27.0-31.0); MEAN CORPUSCULAR HGB CONC 32.7 g/dL (32.0-36.0); MEAN PLATELET VOLUME 10.7 fL (7.4-11.4); MONOCYTES # (AUTO) 0.3 10^3/uL (0.0-1.0); MONOCYTES % (AUTO) 17.1 %; NEUTROPHILS % (AUTO) 34.2 %; PLT - PLATELET COUNT 151 10^3/uL (130-450); RED BLOOD COUNT 3.87 10^6/uL (4.70-6.10); RED CELL DISTRIBUTION WIDTH 14.6 % (12.0-15.0)
[2019-06-30 14:31] LABS: NEUTROPHILS # (AUTO) 0.5 10^3/uL (1.5-6.6); WHITE BLOOD COUNT 1.5 x10^3/uL (4.8-10.8)
[2019-06-30 14:32] LABS: PLATELET ESTIMATE, MANUAL NORMAL (130-450,000) (NORMAL); PLATELET MORPHOLOGY NORMAL APPEARANCE (NORMAL); RBC MORPHOLOGY (MULTIPLE) 1+ POLYCHROMASIA (NORMAL)
== END 2019-06-30 12:06 | disposition home or self-care (01) ==
LOC: LAB 12:05
PROVIDERS: ATTEND Internal Medicine
DX: Z94.2 Lung transplant status (principal); Z79.899 Other long term (current) drug therapy
CPT/HCPCS: 85025

== ENCOUNTER 2019-07-07 17:58 | Emergency (ER) | payer MEDICAID ==
[2019-07-07 18:38] LABS: BASOPHILS % (AUTO) 0.9 %; EOSINOPHILS % (AUTO) 7.5 %; HGB - HEMOGLOBIN 10.7 g/dL (14.0-18.0); LYMPHOCYTES % (AUTO) 38.3 %; MEAN CORPUSCULAR HGB CONC 32.2 g/dL (32.0-36.0); MEAN CORPUSCULAR VOLUME 83.8 fL (80.0-94.0); MEAN PLATELET VOLUME 10.7 fL (7.4-11.4); MONOCYTES % (AUTO) 13.6 %; NEUTROPHILS % (AUTO) 7.5 %; PLT - PLATELET COUNT 152 10^3/uL (130-450); RED BLOOD COUNT 3.96 10^6/uL (4.70-6.10); RED CELL DISTRIBUTION WIDTH 14.5 % (12.0-15.0); WHITE BLOOD COUNT 2.1 x10^3/uL (4.8-10.8)
[2019-07-07 18:41] LABS: ABNORMAL LYMPHS % (MANUAL) 0 %
[2019-07-07 18:44] LABS: CALCIUM 8.3 mg/dL (8.5-10.3); CREATININE 1.2 mg/dL (0.6-1.2)
[2019-07-07 19:25] LABS: BAND NEUTROPHILS % (MANUAL) 18 %; DIFFERENTIAL COMMENT MANUAL DIFFERENTIAL; EOSINOPHILS # (MANUAL) 0.1 10^3/uL (0-0.7); LYMPHOCYTES # (MANUAL) 0.9 10^3/uL (1.5-3.5); LYMPHOCYTES % (MANUAL) 42 %; MONOCYTES # (MANUAL) 0.4 10^3/uL (0.0-1.0); PLATELET ESTIMATE, MANUAL NORMAL (130-450,000) (NORMAL); PLATELET MORPHOLOGY NORMAL APPEARANCE (NORMAL); RBC MORPHOLOGY (MULTIPLE) NORMAL APPEARANCE (NORMAL)
--- NOTE | 2019-07-07 20:22 | ED Physician Documentation ---
History of Present Illness - Stated complaint Stated Complaint: BODY PX - Chief complaint Chief Complaint: General - History obtained from History obtained from: Patient, Family - History of Present Illness Timing: Today Pain level max: 3 Pain level now: 2 - Additonal information Additional information: 28-year-old male presents to the emergency department with body aches today. He states this is similar to last time he was neutropenic. He is status post a double lung transplant for cystic fibrosis and December of last year. He is currently on tacrolimus and mycophenolate. He is also on antiviral medication for CMV at this time. No fevers. Slight increased cough from baseline. No abdominal pain. No vomiting. No diarrhea. No urinary symptoms. No sore throat. No rhinorrhea or congestion. He received a Neulasta shot last week. Review of Systems Ten Systems: 10 systems reviewed and negative Constitutional: denies: Fever, Chills Nose: denies: Rhinorrhea / runny nose, Congestion GI: denies: Vomiting, Diarrhea Skin: denies: Rash Musculoskeletal: denies: Neck pain, Back pain Neurologic: denies: Headache PD PAST MEDICAL HISTORY - Past Medical History Past Medical History: Yes Cardiovascular: None Respiratory: Cystic fibrosis Neuro: None Endocrine/Autoimmune: None GI: None : None HEENT: None Psych: None Musculoskeletal: None Derm: None - Past Surgical History Past Surgical History: Yes Derm: Other - Present Medications Home Medications: Ambulatory Orders Medication Instructions Recorded Confirmed Lipase/Protease/Amylase [Zenpep Dr 3 each PO TIDWM 02/22/13 07/05/19 15,000/51,000/82,000 [facility]] Aspirin [Adult Low Dose Aspirin EC] 81 mg PO DAILY 05/14/19 07/05/19 Calcium Citrate 1,900 mg PO BID 05/14/19 07/05/19 Cholecalciferol (Vitamin D3) 1,000 unit PO DAILY 05/14/19 07/05/19 [Vitamin D3] Magnesium Oxide [Mag Ox] 800 mg ORAL BID 05/14/19 07/05/19 Omeprazole 20 mg PO DAILY 05/14/19 07/05/19 Pravastatin [Pravachol] 20 mg PO DAILY 05/14/19 07/05/19 Sulfamethoxazole/Trimethoprim 1 each PO DAILY 05/14/19 07/05/19 [Bactrim 400-80 mg Tablet] Tacrolimus [Prograf] 0.5 mg PO BID 05/14/19 07/05/19 Vitamin B Complex 1 each PO DAILY 05/14/19 07/05/19 mycophenolate mofetiL 1,000 mg PO BID 05/14/19 07/05/19 [Mycophenolate Mofetil] predniSONE [Prednisone] 10 mg PO DAILY 05/14/19 07/05/19 - Allergies Allergies/Adverse Reactions: Allergies Allergy/AdvReac Type Severity Reaction Status Date / Time latex Allergy Unknown Verified 07/07/19 18:05 - Social History Does the pt smoke?: No Smoking Status: Never smoker Does the pt drink ETOH?: No Does the pt have substance abuse?: No - Immunizations Immunizations are current?: Yes - POLST Patient has POLST: No PD ED PE NORMAL - Vitals Vital signs reviewed: Yes - General General: Alert and oriented X 3, No acute distress - HEENT HEENT: PERRL, Moist mucous membranes - Neck Neck: Supple, no meningeal sign - Cardiac Cardiac: RRR - Respiratory Respiratory: No respiratory distress, Clear bilaterally - Abdomen Abdomen: Soft, Non tender, Non distended - Derm Derm: Warm and dry - Neuro Neuro: Alert and oriented X 3 - Psych Psych: Normal mood, Normal affect Results - Vitals Vitals: Vital Signs - 24 hr 07/07/19 07/07/19 18:06 18:09 Temperature 36.8 C 36.8 C Heart Rate 88 88 Respiratory 18 18 Rate Blood Pressure 110/61 110/67 O2 Saturation 99 99 Oxygen O2 Source Room air - Labs Labs: Laboratory Tests 07/07/19 07/07/19 18:32 18:32 WBC 2.1 L RBC 3.96 L Hgb 10.7 L Hct 33.2 L MCV 83.8 MCH 27.0 MCHC 32.2 RDW 14.5 Plt Count 152 MPV 10.7 Neut # (Auto) Not Reportable Lymph # (Auto) Not Reportable Centre # (Auto) Not Reportable Eos # (Auto) Not Reportable Baso # (Auto) Not Reportable Absolute Nucleated RBC Not Reportable Total Counted 100 Band Neuts % (Manual) 18 H Abnorm Lymph % (Manual) 0 Nucleated RBC % Not Reportable Neutrophils # (Manual) 0.7 L Lymphocytes # (Manual) 0.9 L Monocytes # (Manual) 0.4 Eosinophils # (Manual) 0.1 Basophils # (Manual) 0.0 Differential Comment MANUAL DIFFERENTIAL Manual Slide Review Indicated WBC Morphology TOXIC GRANULATION Platelet Estimate NORMAL (130-450,000) Platelet Morphology NORMAL APPEARANCE RBC Morph Micro Appear NORMAL APPEARANCE Sodium 135 Potassium 4.6 Chloride 103 Carbon Dioxide 24 Anion Gap 8.0 BUN 30 H Creatinine 1.2 Estimated GFR (MDRD) 73 L Glucose 145 H Calcium 8.3 L - Rads (name of study) cxr Radiology: Prelim report reviewed, EMP read contemporaneously, See rad report (No acute disease) PD MEDICAL DECISION MAKING - ED course Complexity details: reviewed results, re-evaluated patient, considered differential, d/w patient, d/w family, d/w business info consultant (Dr. Hoffmann transplant) ED course: I spoke with the patient's transplant team. They will contact him tomorrow for further follow-up. They asked that a CMV count be sent. This was ordered. No fevers. Does have pancytopenia, this is unchanged from prior. Patient counseled regarding signs and symptoms for which I believe and urgent re- evaluation would be necessary. Patient with good understanding of and agreement to plan and is comfortable going home at this time This document was made in part using voice recognition software. While efforts are made to proofread this document, sound alike and grammatical errors may occur. Patient is very well-appearing, nontoxic. Afebrile. No hypoxia. No respiratory distress. Departure - Departure Disposition: 01 Home, Self Care Clinical Impression: Pancytopenia, Lung transplant recipient Neutropenia Qualifiers: Neutropenia type: unspecified Qualified Code(s): D70.9 - Neutropenia, unspecified Condition: Good Instructions: Neutropenia Follow-Up: Jelani Antonio MD [Primary Care Provider] - Within 1 week NICHOLAS HOFFMANN [Physician No Access] - Comments: I spoke with Dr. Hoffmann, [facility] lung transplant team, lizette. He states that the clinic will follow-up with you tomorrow. They may want to call in a [place] [facility] [place].
[2019-07-07 20:27] VITALS: BP 118/71
--- NOTE | 2019-07-07 20:45 | XRAY Report ---
Reason: cough Procedure Date: 07/07/2019 Accession Number: [id number] / [id number] Procedure: XR - Chest 2 View X-Ray CPT Code: 31513 Final Report FULL RESULT: EXAM: CHEST RADIOGRAPHY EXAM DATE: 07/07/2019 07:47 PM. CLINICAL HISTORY: Cough. COMPARISON: CHEST 1 VIEW 06/23/2018 2:25 PM CHEST W/ 12/06/2015 12:38 PM. TECHNIQUE: 2 views. FINDINGS: Lungs/Pleura: The lung volumes are large. No consolidation or edema. Negative for pleural effusion and pneumothorax. Mediastinum: The heart size is normal. There are findings of previous median sternotomy. 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 IMPRESSION: Negative for an acute cardiopulmonary abnormality. RADIA
[2019-07-11 03:53] LABS: SOURCE blood
[2019-07-12 11:12] LABS: CMV DNA QN RT PCR 2422 IU/mL
--- NOTE | 2019-07-13 11:06 | ED Physician Documentation ---
ED Addendum - Addendum Addendum: I was alerted that the CMV titers came back on patient, who was seen by Dr. Eden on 07/07. He reportedly has known CMV, though I do not know past titers. It sounds like the transplant team specifically requested this lab and will be following up on these results, but to be sure I called into the post- transplant clinic - unfortunately there was no answer. We are faxing over the results to the post-transplant clinic at this time to ensure they receive them. 07/13/19 11:03
== END 2019-07-07 20:33 | disposition home or self-care (01) ==
LOC: ED 17:58
DX: D61.818 Other pancytopenia (principal); E84.9 Cystic fibrosis, unspecified; Z94.2 Lung transplant status
CPT/HCPCS: 36415; 71046; 80048; 85025; 87497; 99284

== ENCOUNTER 2019-07-09 08:05 | Outpatient (CLI) | payer MEDICAID ==
[2019-07-09 09:37] LABS: BASOPHILS % (AUTO) 1.3 %; EOSINOPHILS % (AUTO) 9.1 %; HGB - HEMOGLOBIN 11.3 g/dL (14.0-18.0); LYMPHOCYTES % (AUTO) 27.6 %; MEAN CORPUSCULAR HGB CONC 32.6 g/dL (32.0-36.0); MEAN CORPUSCULAR VOLUME 85.9 fL (80.0-94.0); MEAN PLATELET VOLUME 11.3 fL (7.4-11.4); MONOCYTES % (AUTO) 9.3 %; NEUTROPHILS % (AUTO) 46.6 %; PLT - PLATELET COUNT 157 10^3/uL (130-450); RED BLOOD COUNT 4.04 10^6/uL (4.70-6.10); RED CELL DISTRIBUTION WIDTH 15.1 % (12.0-15.0); WHITE BLOOD COUNT 4.6 x10^3/uL (4.8-10.8)
[2019-07-09 09:45] LABS: ABNORMAL LYMPHS % (MANUAL) 0 %
[2019-07-09 11:18] LABS: BAND NEUTROPHILS % (MANUAL) 8 %; BASOPHILS % (MANUAL) 1 %; EOSINOPHILS # (MANUAL) 0.8 10^3/uL (0-0.7); LYMPHOCYTES # (MANUAL) 2.1 10^3/uL (1.5-3.5); LYMPHOCYTES % (MANUAL) 46 %; MONOCYTES # (MANUAL) 0.6 10^3/uL (0.0-1.0)
[2019-07-09 11:20] LABS: DIFFERENTIAL COMMENT MANUAL DIFFERENTIAL; PLATELET ESTIMATE, MANUAL NORMAL (130-450,000) (NORMAL); PLATELET MORPHOLOGY NORMAL APPEARANCE (NORMAL); RBC MORPHOLOGY (MULTIPLE) NORMAL APPEARANCE (NORMAL)
[2019-07-12 14:54] LABS: CMV DNA QN RT PCR 928 IU/mL; SOURCE BLOOD
== END 2019-07-09 08:06 | disposition home or self-care (01) ==
LOC: LAB 08:05
PROVIDERS: ATTEND Internal Medicine
DX: Z94.2 Lung transplant status (principal); Z79.899 Other long term (current) drug therapy
CPT/HCPCS: 36415; 80048; 80197; 85025; 87497

== ENCOUNTER 2019-07-20 08:02 | Outpatient (CLI) | payer MEDICAID ==
[2019-07-20 08:28] LABS: BASOPHILS # (AUTO) 0.1 10^3/uL (0.0-0.1); BASOPHILS % (AUTO) 2.4 %; EOSINOPHILS # (AUTO) 0.2 10^3/uL (0.0-0.7); EOSINOPHILS % (AUTO) 7.1 %; HGB - HEMOGLOBIN 11.6 g/dL (14.0-18.0); LYMPHOCYTES # (AUTO) 1.2 10^3/uL (1.5-3.5); LYMPHOCYTES % (AUTO) 46.7 %; MEAN CORPUSCULAR HEMOGLOBIN 27.8 pg (27.0-31.0); MEAN CORPUSCULAR HGB CONC 32.3 g/dL (32.0-36.0); MEAN CORPUSCULAR VOLUME 86.1 fL (80.0-94.0); MEAN PLATELET VOLUME 9.4 fL (7.4-11.4); MONOCYTES # (AUTO) 0.2 10^3/uL (0.0-1.0); MONOCYTES % (AUTO) 7.5 %; NEUTROPHILS # (AUTO) 0.9 10^3/uL (1.5-6.6); NEUTROPHILS % (AUTO) 35.9 %; PLT - PLATELET COUNT 154 10^3/uL (130-450); RED BLOOD COUNT 4.17 10^6/uL (4.70-6.10); RED CELL DISTRIBUTION WIDTH 15.8 % (12.0-15.0); WHITE BLOOD COUNT 2.6 x10^3/uL (4.8-10.8)
[2019-07-20 09:15] LABS: PLATELET ESTIMATE, MANUAL NORMAL (130-450,000) (NORMAL); PLATELET MORPHOLOGY NORMAL APPEARANCE (NORMAL); RBC MORPHOLOGY (MULTIPLE) NORMAL APPEARANCE (NORMAL)
[2019-07-22 04:38] LABS: CMV DNA QN RT PCR <200 IU/mL; SOURCE PLASMA
== END 2019-07-20 08:03 | disposition home or self-care (01) ==
LOC: LAB 08:02
PROVIDERS: ATTEND Internal Medicine
DX: Z94.2 Lung transplant status (principal); Z79.899 Other long term (current) drug therapy
CPT/HCPCS: 36415; 85025; 87497

== ENCOUNTER 2019-07-29 08:39 | Outpatient (CLI) | payer MEDICAID ==
[2019-07-31 10:34] LABS: CMV DNA QN RT PCR <200 IU/mL; SOURCE WHOLE BLOOD
== END 2019-07-29 08:40 | disposition home or self-care (01) ==
LOC: LAB 08:39
PROVIDERS: ATTEND Internal Medicine
DX: Z94.2 Lung transplant status (principal); Z79.899 Other long term (current) drug therapy
CPT/HCPCS: 36415; 87497

== ENCOUNTER 2019-08-12 08:31 | Outpatient (CLI) | payer MEDICAID ==
[2019-08-12 09:17] LABS: CALCIUM 8.7 mg/dL (8.5-10.3); CREATININE 1.1 mg/dL (0.6-1.2)
[2019-08-14 05:44] LABS: CMV DNA QN RT PCR <200 IU/mL; SOURCE PLASMA
== END 2019-08-12 08:32 | disposition home or self-care (01) ==
LOC: LAB 08:31
PROVIDERS: ATTEND Internal Medicine
DX: Z94.2 Lung transplant status (principal); Z79.899 Other long term (current) drug therapy
CPT/HCPCS: 36415; 80048; 87497

== ENCOUNTER 2019-08-30 09:18 | Outpatient (CLI) | payer MEDICAID ==
[2019-08-30 09:38] LABS: BASOPHILS # (AUTO) 0.2 10^3/uL (0.0-0.1); BASOPHILS % (AUTO) 1.3 %; EOSINOPHILS # (AUTO) 0.1 10^3/uL (0.0-0.7); EOSINOPHILS % (AUTO) 0.8 %; HGB - HEMOGLOBIN 11.5 g/dL (14.0-18.0); LYMPHOCYTES # (AUTO) 1.5 10^3/uL (1.5-3.5); LYMPHOCYTES % (AUTO) 9.6 %; MEAN CORPUSCULAR HEMOGLOBIN 28.6 pg (27.0-31.0); MEAN CORPUSCULAR HGB CONC 33.6 g/dL (32.0-36.0); MEAN CORPUSCULAR VOLUME 85.1 fL (80.0-94.0); MEAN PLATELET VOLUME 9.9 fL (7.4-11.4); MONOCYTES # (AUTO) 1.3 10^3/uL (0.0-1.0); MONOCYTES % (AUTO) 7.9 %; NEUTROPHILS # (AUTO) 11.1 10^3/uL (1.5-6.6); NEUTROPHILS % (AUTO) 70.1 %; PLT - PLATELET COUNT 118 10^3/uL (130-450); RED BLOOD COUNT 4.02 10^6/uL (4.70-6.10); WHITE BLOOD COUNT 15.9 x10^3/uL (4.8-10.8)
[2019-08-30 10:02] LABS: PLATELET ESTIMATE, MANUAL NORMAL (130-450,000) (NORMAL); PLATELET MORPHOLOGY NORMAL APPEARANCE (NORMAL); RBC MORPHOLOGY (MULTIPLE) NORMAL APPEARANCE (NORMAL)
[2019-09-03 08:39] LABS: CMV DNA QN RT PCR <200 IU/mL; SOURCE BLOOD
== END 2019-08-30 09:19 | disposition home or self-care (01) ==
LOC: LAB 09:18
PROVIDERS: ATTEND Internal Medicine
DX: Z94.2 Lung transplant status (principal); Z79.899 Other long term (current) drug therapy
CPT/HCPCS: 36415; 85025; 87497

== ENCOUNTER 2019-09-09 09:23 | Outpatient (CLI) | payer MEDICAID ==
[2019-09-09 09:37] LABS: BASOPHILS # (AUTO) 0.1 10^3/uL (0.0-0.1); BASOPHILS % (AUTO) 1.3 %; EOSINOPHILS # (AUTO) 0.7 10^3/uL (0.0-0.7); EOSINOPHILS % (AUTO) 17.8 %; HGB - HEMOGLOBIN 10.6 g/dL (14.0-18.0); MEAN CORPUSCULAR HEMOGLOBIN 28.6 pg (27.0-31.0); MEAN CORPUSCULAR HGB CONC 32.8 g/dL (32.0-36.0); MEAN CORPUSCULAR VOLUME 87.1 fL (80.0-94.0); MEAN PLATELET VOLUME 9.6 fL (7.4-11.4); MONOCYTES # (AUTO) 0.5 10^3/uL (0.0-1.0); MONOCYTES % (AUTO) 12.1 %; NEUTROPHILS # (AUTO) 1.6 10^3/uL (1.5-6.6); NEUTROPHILS % (AUTO) 42.5 %; PLT - PLATELET COUNT 151 10^3/uL (130-450); RED BLOOD COUNT 3.71 10^6/uL (4.70-6.10); RED CELL DISTRIBUTION WIDTH 19.2 % (12.0-15.0); WHITE BLOOD COUNT 3.8 x10^3/uL (4.8-10.8)
== END 2019-09-09 09:24 | disposition home or self-care (01) ==
LOC: LAB 09:23
PROVIDERS: ATTEND Internal Medicine
DX: Z79.899 Other long term (current) drug therapy (principal); Z94.2 Lung transplant status
CPT/HCPCS: 36415; 85025; 87497

== ENCOUNTER 2019-09-30 07:57 | Outpatient (CLI) | payer MEDICAID ==
[2019-09-30 08:30] LABS: BASOPHILS % (AUTO) 1.6 %; EOSINOPHILS % (AUTO) 24.1 %; HGB - HEMOGLOBIN 13.3 g/dL (14.0-18.0); LYMPHOCYTES % (AUTO) 44.1 %; MEAN CORPUSCULAR HEMOGLOBIN 27.7 pg (27.0-31.0); MEAN CORPUSCULAR HGB CONC 32.4 g/dL (32.0-36.0); MEAN CORPUSCULAR VOLUME 85.4 fL (80.0-94.0); MONOCYTES % (AUTO) 14.5 %; NEUTROPHILS % (AUTO) 15.4 %; PLT - PLATELET COUNT 143 10^3/uL (130-450); WHITE BLOOD COUNT 3.1 x10^3/uL (4.8-10.8)
[2019-09-30 08:37] LABS: CALCIUM 8.3 mg/dL (8.5-10.3)
[2019-09-30 09:58] LABS: ABNORMAL LYMPHS % (MANUAL) 0 %; BAND NEUTROPHILS % (MANUAL) 0 %
[2019-09-30 10:11] LABS: BASOPHILS % (MANUAL) 1 %; DIFFERENTIAL COMMENT MANUAL DIFFERENTIAL; EOSINOPHILS # (MANUAL) 0.7 10^3/uL (0-0.7); LYMPHOCYTES # (MANUAL) 1.3 10^3/uL (1.5-3.5); LYMPHOCYTES % (MANUAL) 43 %; MONOCYTES # (MANUAL) 0.3 10^3/uL (0.0-1.0); PLATELET ESTIMATE, MANUAL NORMAL (130-450,000) (NORMAL); PLATELET MORPHOLOGY NORMAL APPEARANCE (NORMAL); RBC MORPHOLOGY (MULTIPLE) NORMAL APPEARANCE (NORMAL)
[2019-10-02 04:32] LABS: CMV DNA QN RT PCR 285 IU/mL; SOURCE BLOOD
== END 2019-09-30 07:58 | disposition home or self-care (01) ==
LOC: LAB 07:57
PROVIDERS: ATTEND Internal Medicine
DX: Z94.2 Lung transplant status (principal); Z79.899 Other long term (current) drug therapy
CPT/HCPCS: 36415; 80048; 80197; 85025; 87497

== ENCOUNTER 2019-10-13 08:01 | Outpatient (CLI) | payer MEDICARE ==
[2019-10-13 08:18] LABS: BASOPHILS % (AUTO) 0.5 %; EOSINOPHILS % (AUTO) 11.4 %; HGB - HEMOGLOBIN 12.9 g/dL (14.0-18.0); LYMPHOCYTES % (AUTO) 19.3 %; MEAN CORPUSCULAR HEMOGLOBIN 28.7 pg (27.0-31.0); MEAN CORPUSCULAR HGB CONC 33.4 g/dL (32.0-36.0); MEAN CORPUSCULAR VOLUME 85.8 fL (80.0-94.0); MEAN PLATELET VOLUME 9.6 fL (7.4-11.4); MONOCYTES % (AUTO) 4.3 %; NEUTROPHILS % (AUTO) 63.8 %; PLT - PLATELET COUNT 134 10^3/uL (130-450); RED CELL DISTRIBUTION WIDTH 15.4 % (12.0-15.0); WHITE BLOOD COUNT 11.2 x10^3/uL (4.8-10.8)
[2019-10-13 08:23] LABS: ABNORMAL LYMPHS % (MANUAL) 0 %
[2019-10-13 08:27] LABS: CALCIUM 8.2 mg/dL (8.5-10.3); CREATININE 1.1 mg/dL (0.6-1.2)
[2019-10-13 08:34] LABS: BAND NEUTROPHILS % (MANUAL) 1 %; DIFFERENTIAL COMMENT MANUAL DIFFERENTIAL; LYMPHOCYTES # (MANUAL) 2.7 10^3/uL (1.5-3.5); LYMPHOCYTES % (MANUAL) 24 %; MONOCYTES # (MANUAL) 0.2 10^3/uL (0.0-1.0); PLATELET ESTIMATE, MANUAL NORMAL (130-450,000) (NORMAL); PLATELET MORPHOLOGY NORMAL APPEARANCE (NORMAL); RBC MORPHOLOGY (MULTIPLE) NORMAL APPEARANCE (NORMAL)
[2019-10-17 13:40] LABS: CMV DNA QN RT PCR <200 IU/mL; SOURCE BLOOD
== END 2019-10-13 08:02 | disposition home or self-care (01) ==
LOC: LAB 08:01
PROVIDERS: ATTEND Internal Medicine
DX: Z94.2 Lung transplant status (principal); Z79.899 Other long term (current) drug therapy
CPT/HCPCS: 36415; 80048; 80197; 85025; 87497

== ENCOUNTER 2019-10-25 07:50 | Outpatient (CLI) | payer MEDICARE ==
[2019-10-25 08:24] LABS: BASOPHILS % (AUTO) 1.1 %; EOSINOPHILS % (AUTO) 1.3 %; LYMPHOCYTES % (AUTO) 27.1 %; MEAN CORPUSCULAR HEMOGLOBIN 29.3 pg (27.0-31.0); MEAN CORPUSCULAR HGB CONC 34.7 g/dL (32.0-36.0); MEAN CORPUSCULAR VOLUME 84.5 fL (80.0-94.0); MEAN PLATELET VOLUME 9.2 fL (7.4-11.4); MONOCYTES % (AUTO) 6.8 %; PLT - PLATELET COUNT 169 10^3/uL (130-450); RED BLOOD COUNT 4.44 10^6/uL (4.70-6.10); RED CELL DISTRIBUTION WIDTH 15.4 % (12.0-15.0); WHITE BLOOD COUNT 5.5 x10^3/uL (4.8-10.8)
[2019-10-25 08:30] LABS: ABNORMAL LYMPHS % (MANUAL) 0 %; BAND NEUTROPHILS % (MANUAL) 0 %
[2019-10-25 08:38] LABS: CALCIUM 8.8 mg/dL (8.5-10.3); CREATININE 1.1 mg/dL (0.6-1.2)
[2019-10-25 08:52] LABS: BASOPHILS # (MANUAL) 0.1 10^3/uL (0-0.1); BASOPHILS % (MANUAL) 2 %; DIFFERENTIAL COMMENT MANUAL DIFFERENTIAL; EOSINOPHILS # (MANUAL) 0.1 10^3/uL (0-0.7); LYMPHOCYTES # (MANUAL) 2.8 10^3/uL (1.5-3.5); LYMPHOCYTES % (MANUAL) 34 %
[2019-10-28 10:05] LABS: CMV DNA QN RT PCR <200 IU/mL; SOURCE BLOOD
== END 2019-10-25 07:51 | disposition home or self-care (01) ==
LOC: LAB 07:50
PROVIDERS: ATTEND Internal Medicine
DX: Z94.2 Lung transplant status (principal); Z79.899 Other long term (current) drug therapy
CPT/HCPCS: 36415; 80048; 80197; 85025; 87497

== ENCOUNTER 2019-11-02 08:05 | Outpatient (CLI) | payer MEDICARE ==
[2019-11-02 08:23] LABS: BASOPHILS % (AUTO) 0.8 %; EOSINOPHILS # (AUTO) 0.1 10^3/uL (0.0-0.7); EOSINOPHILS % (AUTO) 1.5 %; HGB - HEMOGLOBIN 12.1 g/dL (14.0-18.0); LYMPHOCYTES # (AUTO) 1.5 10^3/uL (1.5-3.5); LYMPHOCYTES % (AUTO) 37.8 %; MEAN CORPUSCULAR HEMOGLOBIN 29.1 pg (27.0-31.0); MEAN CORPUSCULAR HGB CONC 34.2 g/dL (32.0-36.0); MEAN CORPUSCULAR VOLUME 85.1 fL (80.0-94.0); MEAN PLATELET VOLUME 9.4 fL (7.4-11.4); MONOCYTES # (AUTO) 0.2 10^3/uL (0.0-1.0); MONOCYTES % (AUTO) 5.8 %; NEUTROPHILS # (AUTO) 2.1 10^3/uL (1.5-6.6); NEUTROPHILS % (AUTO) 53.6 %; PLT - PLATELET COUNT 180 10^3/uL (130-450); RED BLOOD COUNT 4.16 10^6/uL (4.70-6.10); RED CELL DISTRIBUTION WIDTH 16.5 % (12.0-15.0)
[2019-11-02 08:35] LABS: CALCIUM 8.6 mg/dL (8.5-10.3); CREATININE 1.1 mg/dL (0.6-1.2)
[2019-11-05 04:55] LABS: CMV DNA QN RT PCR <200 IU/mL; SOURCE BLOOD
== END 2019-11-02 08:06 | disposition home or self-care (01) ==
LOC: LAB 08:05
PROVIDERS: ATTEND Internal Medicine
DX: Z94.2 Lung transplant status (principal); Z79.899 Other long term (current) drug therapy
CPT/HCPCS: 36415; 80048; 80197; 85025; 87497

== ENCOUNTER 2019-11-19 08:49 | Outpatient (CLI) | payer MEDICARE ==
[2019-11-23 18:29] LABS: CMV DNA QN RT PCR <200 IU/mL; SOURCE PLASMA
== END 2019-11-19 08:50 | disposition home or self-care (01) ==
LOC: LAB 08:49
PROVIDERS: ATTEND Internal Medicine
DX: Z94.2 Lung transplant status (principal); Z79.899 Other long term (current) drug therapy
CPT/HCPCS: 36415; 87497

== ENCOUNTER 2019-12-16 09:05 | Outpatient (CLI) | payer MEDICARE ==
[2019-12-20 23:39] LABS: CMV DNA QN RT PCR <200 IU/mL; SOURCE BLOOD
== END 2019-12-16 09:06 | disposition home or self-care (01) ==
LOC: LAB 09:05
PROVIDERS: ATTEND Internal Medicine
DX: Z94.2 Lung transplant status (principal); Z79.899 Other long term (current) drug therapy
CPT/HCPCS: 36415; 87497

== ENCOUNTER 2020-02-23 07:50 | Outpatient (CLI) | payer MEDICARE ==
[2020-02-23 08:07] LABS: BASOPHILS % (AUTO) 0.7 %; EOSINOPHILS # (AUTO) 0.3 10^3/uL (0.0-0.7); EOSINOPHILS % (AUTO) 7.2 %; HGB - HEMOGLOBIN 12.8 g/dL (14.0-18.0); LYMPHOCYTES # (AUTO) 1.6 10^3/uL (1.5-3.5); LYMPHOCYTES % (AUTO) 37.1 %; MEAN CORPUSCULAR HEMOGLOBIN 30.5 pg (27.0-31.0); MEAN CORPUSCULAR HGB CONC 34.7 g/dL (32.0-36.0); MEAN CORPUSCULAR VOLUME 87.9 fL (80.0-94.0); MEAN PLATELET VOLUME 9.2 fL (7.4-11.4); MONOCYTES # (AUTO) 0.4 10^3/uL (0.0-1.0); MONOCYTES % (AUTO) 8.9 %; NEUTROPHILS # (AUTO) 1.9 10^3/uL (1.5-6.6); NEUTROPHILS % (AUTO) 45.9 %; PLT - PLATELET COUNT 153 10^3/uL (130-450); RED CELL DISTRIBUTION WIDTH 14.6 % (12.0-15.0); WHITE BLOOD COUNT 4.2 x10^3/uL (4.8-10.8)
[2020-02-23 08:15] LABS: CALCIUM 9.1 mg/dL (8.5-10.3); CREATININE 1.1 mg/dL (0.6-1.2)
[2020-02-25 23:47] LABS: CMV DNA QN RT PCR <200 IU/mL; SOURCE BLOOD
== END 2020-02-23 07:51 | disposition home or self-care (01) ==
LOC: LAB 07:50
PROVIDERS: ATTEND Internal Medicine
DX: Z94.2 Lung transplant status (principal); Z79.899 Other long term (current) drug therapy
CPT/HCPCS: 36415; 80048; 80197; 85025; 87497

== ENCOUNTER 2020-03-08 07:41 | Outpatient (CLI) | payer MEDICARE ==
--- NOTE | 2020-03-08 15:20 | XRAY Report ---
PROCEDURE: Lumbar Spine 2 View INDICATIONS: CHRONIC LOW BACK PAIN TECHNIQUE: 2 views of the lumbar spine were acquired. COMPARISON: None. FINDINGS: Bones: 5 [id number] vertebrae are present. There is prominent dextroconvex scoliotic curvature within the lumbar spine. There is multilevel moderate to severe foraminal narrowing from L3-4 throug h L5-S1. No vertebral body compression fractures. No suspicious bony lesions. Soft tissues: Overlying bowel gas pattern is normal. No suspicious soft tissue calcifications. IMPRESSION: Scoliotic curvature with foraminal narrowing as above. Reviewed by: Arely Bhagat MD on 03/08/2020 3:19 PM PDT Approved by: Arely Bhagat MD on 03/08/2020 3:19 PM PDT Station ID: [id number]
== END 2020-03-08 07:42 | disposition home or self-care (01) ==
LOC: DI.WCP 07:41
PROVIDERS: ATTEND Family Medicine
DX: M48.061 Spinal stenosis, lumbar region without neurogenic claudication (principal); M48.07 Spinal stenosis, lumbosacral region
CPT/HCPCS: 72100

== ENCOUNTER 2020-03-29 07:52 | Outpatient (CLI) | payer MEDICARE ==
[2020-03-29 08:17] LABS: BASOPHILS % (AUTO) 0.6 %; EOSINOPHILS # (AUTO) 0.1 10^3/uL (0.0-0.7); EOSINOPHILS % (AUTO) 2.5 %; HGB - HEMOGLOBIN 13.3 g/dL (14.0-18.0); LYMPHOCYTES # (AUTO) 1.5 10^3/uL (1.5-3.5); LYMPHOCYTES % (AUTO) 29.3 %; MEAN CORPUSCULAR HEMOGLOBIN 30.6 pg (27.0-31.0); MEAN CORPUSCULAR HGB CONC 34.7 g/dL (32.0-36.0); MEAN PLATELET VOLUME 9.3 fL (7.4-11.4); MONOCYTES # (AUTO) 0.3 10^3/uL (0.0-1.0); MONOCYTES % (AUTO) 6.3 %; NEUTROPHILS # (AUTO) 3.2 10^3/uL (1.5-6.6); NEUTROPHILS % (AUTO) 61.1 %; PLT - PLATELET COUNT 145 10^3/uL (130-450); RED BLOOD COUNT 4.35 10^6/uL (4.70-6.10); RED CELL DISTRIBUTION WIDTH 14.1 % (12.0-15.0); WHITE BLOOD COUNT 5.2 x10^3/uL (4.8-10.8)
[2020-03-29 08:40] LABS: BILIRUBIN,DIRECT 0.1 mg/dL (0.1-0.5); BILIRUBIN,TOTAL 1.1 mg/dL (0.2-1.0); CALCIUM 9.2 mg/dL (8.5-10.3); CREATININE 1.2 mg/dL (0.6-1.2); TOTAL PROTEIN 6.2 g/dL (6.7-8.2)
== END 2020-03-29 07:53 | disposition home or self-care (01) ==
LOC: LAB 07:52
PROVIDERS: ATTEND Internal Medicine
DX: Z94.2 Lung transplant status (principal); Z79.899 Other long term (current) drug therapy
CPT/HCPCS: 36415; 80048; 80076; 80197; 83735; 85025; 87497; 87798

== ENCOUNTER 2020-05-16 07:51 | Outpatient (CLI) | payer MEDICARE, OTHER ==
[2020-05-16 08:39] LABS: CALCIUM 9.3 mg/dL (8.5-10.3); CREATININE 1.1 mg/dL (0.6-1.2)
[2020-05-16 08:50] LABS: BASOPHILS % (AUTO) 0.5 %; EOSINOPHILS # (AUTO) 0.2 10^3/uL (0.0-0.7); EOSINOPHILS % (AUTO) 3.8 %; HGB - HEMOGLOBIN 13.5 g/dL (14.0-18.0); LYMPHOCYTES # (AUTO) 1.6 10^3/uL (1.5-3.5); LYMPHOCYTES % (AUTO) 28.2 %; MEAN CORPUSCULAR HEMOGLOBIN 30.2 pg (27.0-31.0); MEAN CORPUSCULAR VOLUME 86.4 fL (80.0-94.0); MEAN PLATELET VOLUME 10.1 fL (7.4-11.4); MONOCYTES # (AUTO) 0.4 10^3/uL (0.0-1.0); MONOCYTES % (AUTO) 6.9 %; NEUTROPHILS # (AUTO) 3.3 10^3/uL (1.5-6.6); NEUTROPHILS % (AUTO) 60.2 %; PLT - PLATELET COUNT 158 10^3/uL (130-450); RED BLOOD COUNT 4.47 10^6/uL (4.70-6.10); RED CELL DISTRIBUTION WIDTH 13.8 % (12.0-15.0); WHITE BLOOD COUNT 5.5 x10^3/uL (4.8-10.8)
== END 2020-05-16 07:52 | disposition home or self-care (01) ==
LOC: LAB 07:51
PROVIDERS: ATTEND Internal Medicine
DX: Z94.2 Lung transplant status (principal); Z79.899 Other long term (current) drug therapy
CPT/HCPCS: 36415; 80048; 80197; 81599; 82306; 85025; 87799

== ENCOUNTER 2020-05-23 07:51 | Outpatient (CLI) | payer MEDICARE, OTHER ==
[2020-05-23 08:17] LABS: CALCIUM 9.1 mg/dL (8.5-10.3); CREATININE 0.9 mg/dL (0.6-1.2)
== END 2020-05-23 07:52 | disposition home or self-care (01) ==
LOC: LAB 07:51
PROVIDERS: ATTEND Internal Medicine
DX: Z94.2 Lung transplant status (principal); Z79.899 Other long term (current) drug therapy
CPT/HCPCS: 36415; 80048; 80197

== ENCOUNTER 2020-06-12 07:52 | Outpatient (CLI) | payer MEDICARE, OTHER ==
[2020-06-12 08:40] LABS: CALCIUM 8.7 mg/dL (8.5-10.3); CREATININE 1.3 mg/dL (0.6-1.2)
== END 2020-06-12 07:53 | disposition home or self-care (01) ==
LOC: LAB 07:52
PROVIDERS: ATTEND Internal Medicine
DX: Z94.2 Lung transplant status (principal); Z79.899 Other long term (current) drug therapy
CPT/HCPCS: 36415; 80048; 80197

== ENCOUNTER 2020-06-19 07:09 | Outpatient (CLI) | payer MEDICARE, OTHER | END 2020-06-19 07:10 | disposition home or self-care (01) | LOC: LAB 07:09 | PROVIDERS: ATTEND Internal Medicine | DX: Z94.2 Lung transplant status (principal); Z79.899 Other long term (current) drug therapy | CPT/HCPCS: 81599; 87799 ==

== ENCOUNTER 2020-06-29 08:44 | Outpatient (CLI) | payer MEDICARE, OTHER | END 2020-06-29 08:45 | disposition home or self-care (01) | LOC: COV 08:44 | PROVIDERS: ATTEND Family Medicine | DX: R06.02 Shortness of breath (principal); M79.10 Myalgia, unspecified site; Z20.822 Contact with and (suspected) exposure to COVID-19 ==

== ENCOUNTER 2020-07-18 00:58 | Emergency (ER) | payer MEDICARE, OTHER ==
--- NOTE | 2020-07-18 01:04 | ED Physician Documentation ---
PD HPI HEENT - Stated complaint Stated Complaint: UPPER JAW PX - History obtained from History obtained from: Patient - History of Present Illness Timing - onset: How many days ago (2-3) Timing - duration: Days (2-3) Timing - details: Gradual onset, Still present Location: Tooth (initially single tooth pain right upper first molar area, that has spread to be the several teeth area right upper. With mild feeling gum swelling. No drainage.) Associated symptoms: No: Fever, Congestion, Facial swelling, Headache Similar symptoms before: Has not had sx before Recently seen: Not recently seen Review of Systems Constitutional: denies: Fever, Myalgias Nose: denies: Rhinorrhea / runny nose, Congestion Throat: reports: Dental pain / toothache. denies: Sore throat Respiratory: denies: Cough GI: denies: Nausea, Vomiting, Diarrhea PD PAST MEDICAL HISTORY - Past Medical History Cardiovascular: None Respiratory: Cystic fibrosis Neuro: None Endocrine/Autoimmune: None GI: None : None HEENT: None Psych: None Musculoskeletal: None Derm: None - Past Surgical History Past Surgical History: Yes Derm: Other - Present Medications Home Medications: Ambulatory Orders Medication Instructions Recorded Confirmed Aspirin [Adult Low Dose Aspirin EC] 81 mg PO DAILY 05/14/19 07/05/19 Calcium Citrate 1,900 mg PO BID 05/14/19 07/05/19 Cholecalciferol (Vitamin D3) 1,000 unit PO DAILY 05/14/19 07/05/19 [Vitamin D3] Magnesium Oxide [Mag Ox] 800 mg ORAL BID 05/14/19 07/05/19 Omeprazole 20 mg PO DAILY 05/14/19 07/05/19 Pravastatin [Pravachol] 20 mg PO DAILY 05/14/19 07/05/19 Sulfamethoxazole/Trimethoprim 1 each PO DAILY 05/14/19 07/05/19 [Bactrim 400-80 mg Tablet] Tacrolimus [Prograf] 2 mg PO BID 05/14/19 07/05/19 Vitamin B Complex 1 each PO DAILY 05/14/19 07/05/19 mycophenolate mofetiL 500 mg PO BID 05/14/19 07/05/19 [Mycophenolate Mofetil] predniSONE [Prednisone] 5 mg PO DAILY 05/14/19 07/05/19 Clindamycin [Cleocin] 150 mg PO TID 5 Days #15 cap 07/18/20 Cyclobenzaprine HCl 5 mg PO DAILY PRN 07/18/20 07/18/20 Oxycodone HCl/Acetaminophen 1 each PO Q6H PRN #10 tab 07/18/20 [Percocet 5-325 mg Tablet] Sertraline HCl 100 mg PO DAILY 07/18/20 07/18/20 clonazePAM [Clonazepam] 0.5 mg PO BID 07/18/20 07/18/20 - Allergies Allergies/Adverse Reactions: Allergies Allergy/AdvReac Type Severity Reaction Status Date / Time latex Allergy Unknown Verified 07/18/20 01:22 - Social History Does the pt smoke?: No Smoking Status: Never smoker Does the pt drink ETOH?: No Does the pt have substance abuse?: No - Immunizations Immunizations are current?: Yes - POLST Patient has POLST: No PD ED PE NORMAL - Vitals Vital signs reviewed: Yes - General General: Alert and oriented X 3, No acute distress, Well developed/nourished - HEENT HEENT: Moist mucous membranes, Pharynx benign. No: Dentition benign (caries noted right upper with prior filling 2nd molar. Tender to percussion first molar. Minimal swelling of gum. No fluctuance. No sores/ulcerations. Neck supple without adenopathy. ) - Neck Neck: Supple, no meningeal sign, No adenopathy - Cardiac Cardiac: RRR, No murmur - Respiratory Respiratory: Clear bilaterally - Derm Derm: Normal color, Warm and dry, No rash Results - Vitals Vitals: Vital Signs - 24 hr 07/18/20 01:00 Temperature 36.6 C Heart Rate 75 Respiratory 16 Rate Blood Pressure 136/85 H O2 Saturation 100 Oxygen O2 Source Room air PD MEDICAL DECISION MAKING - ED course Complexity details: considered differential (seems likely dental pain with inflammation, but concern for infection, jimmie with immune suppression meds. ), d/w patient Departure - Departure Disposition: 01 Home, Self Care Clinical Impression: Pain due to dental caries Condition: Stable Record reviewed to determine appropriate education?: Yes Instructions: ED Tooth Pain Prescriptions: Clindamycin [Cleocin] 150 mg PO TID 5 Days #15 cap Oxycodone HCl/Acetaminophen [Percocet 5-325 mg Tablet] 1 each PO Q6H PRN #10 tab PRN Reason: pain Comments: Use Tylenol or Percocet if needed for the tooth pain. Clindamycin 3 times a day as directed for concern of developing infection at the base of the tooth. Call your dentist tomorrow for a follow-up at their earliest appointment for more definitive care of the tooth. Recheck if not improving well over the next several days and sooner if worsening. Discharge Date/Time: 07/18/20 01:36
[2020-07-18 01:11] VITALS: BP 136/85
[2020-07-18] MEDS ORDERED: oxyCODONE 5 MG TABLET PO STA (01:21)
[2020-07-18] MEDS ORDERED: oxyCODONE/ACET 5/325 Prepack 4 PO STA (01:22)
[2020-07-18] MEDS ORDERED: CLINDAMYCIN 150 MG CAPSULE PO STA (01:22)
== END 2020-07-18 01:36 | disposition home or self-care (01) ==
LOC: ED 00:58
DX: K02.9 Dental caries, unspecified (principal)
CPT/HCPCS: 99282; 99284; A9270

== ENCOUNTER 2020-07-31 07:41 | Outpatient (CLI) | payer MEDICARE, OTHER ==
[2020-07-31 08:10] LABS: BASOPHILS % (AUTO) 0.7 %; EOSINOPHILS % (AUTO) 20.3 %; HGB - HEMOGLOBIN 12.6 g/dL (14.0-18.0); LYMPHOCYTES % (AUTO) 31.2 %; MEAN CORPUSCULAR HEMOGLOBIN 30.4 pg (27.0-31.0); MEAN CORPUSCULAR VOLUME 86.7 fL (80.0-94.0); MEAN PLATELET VOLUME 9.2 fL (7.4-11.4); NEUTROPHILS % (AUTO) 41.6 %; PLT - PLATELET COUNT 135 10^3/uL (130-450); RED BLOOD COUNT 4.15 10^6/uL (4.70-6.10); RED CELL DISTRIBUTION WIDTH 13.4 % (12.0-15.0); WHITE BLOOD COUNT 5.5 x10^3/uL (4.8-10.8)
[2020-07-31 08:15] LABS: ABNORMAL LYMPHS % (MANUAL) 0 %; BAND NEUTROPHILS % (MANUAL) 0 %
[2020-07-31 08:19] LABS: CALCIUM 7.8 mg/dL (8.5-10.3); CREATININE 1.4 mg/dL (0.6-1.2)
[2020-07-31 09:06] LABS: BASOPHILS # (MANUAL) 0.1 10^3/uL (0-0.1); BASOPHILS % (MANUAL) 1 %; EOSINOPHILS # (MANUAL) 0.9 10^3/uL (0-0.7); LYMPHOCYTES # (MANUAL) 1.8 10^3/uL (1.5-3.5); LYMPHOCYTES % (MANUAL) 33 %; MONOCYTES # (MANUAL) 0.2 10^3/uL (0.0-1.0)
[2020-07-31 09:07] LABS: DIFFERENTIAL COMMENT MANUAL DIFFERENTIAL; PLATELET MORPHOLOGY NORMAL APPEARANCE (NORMAL); RBC MORPHOLOGY (MULTIPLE) NORMAL APPEARANCE (NORMAL)
[2020-07-31 09:08] LABS: PLATELET ESTIMATE, MANUAL NORMAL (130-450,000) (NORMAL)
[2020-08-02 13:47] LABS: SOURCE BLOOD
[2020-08-02 15:06] LABS: CMV DNA QN RT PCR <200 IU/mL; SOURCE BLOOD
== END 2020-07-31 07:42 | disposition home or self-care (01) ==
LOC: LAB 07:41
PROVIDERS: ATTEND Internal Medicine
DX: Z94.2 Lung transplant status (principal); Z79.899 Other long term (current) drug therapy
CPT/HCPCS: 36415; 80048; 80197; 85025; 87497; 87798

== ENCOUNTER 2020-08-18 08:03 | Outpatient (CLI) | payer OTHER ==
--- OUTSIDE RECORDS SUMMARY | 2020-09-11 13:03 | EXTERNAL MEDICAL SUMMARY RPT | Continuity of Care Document ---
:1990 Demographics Phone Unavailable Preferred Language Portuguese Marital Status Unknown Confucianism Affiliation Unknown Race Unknown Ethnic Group Unknown Author Organization [facility] Address [address] [phone] Phone Care Team Providers Name Role Phone Billow Unavailable Unavailable Langalva Unavailable Unavailable Problems date description facility 20200717 Adolescent idiopathic scoliosis, thorac olumbar region [facility] [id number] Lung transplant status [facility] [id number] Personal history of other specified con ditions [facility] 20200717 Scoliosis, unspecified [facility] 20200717 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, lumbar [facility] josé miguel Medications date description facility 20200717 Clonazepam 0.5 MG Oral Tablet [facility] ospital Procedures date description facility 20200717 Diagnosis [facility] date description facility 20200717 Finding [facility] date description facility 20200717 General Physician [facility] Vital Signs date measurement value source 20200717 BMI 20.9 kg/m2 20200717 BP_diastolic 80 mm[Hg] 46709002 BP_systolic 140 mm[Hg] 20200717 heart_rate 80 /min 20200717 height_metric 170.18 cm [id number] height_standard 67 in [id number] temperature_metric 37.22 C [id number] temperature_standard 99 F [id number] weight_metric 60.66 kg 16208174 weight_standard 133.73 lb Social History date description facility [id number]
== END 2020-08-18 08:04 | disposition home or self-care (01) ==
LOC: LAB 08:03
PROVIDERS: ATTEND Internal Medicine
DX: Z94.2 Lung transplant status (principal); Z79.899 Other long term (current) drug therapy

== ENCOUNTER 2020-08-21 07:56 | Outpatient (CLI) | payer OTHER ==
[2020-08-21 08:24] LABS: BASOPHILS # (AUTO) 0.1 10^3/uL (0.0-0.1); BASOPHILS % (AUTO) 0.9 %; EOSINOPHILS # (AUTO) 1.5 10^3/uL (0.0-0.7); EOSINOPHILS % (AUTO) 22.7 %; HGB - HEMOGLOBIN 14.1 g/dL (14.0-18.0); LYMPHOCYTES # (AUTO) 2.1 10^3/uL (1.5-3.5); LYMPHOCYTES % (AUTO) 31.4 %; MEAN CORPUSCULAR HEMOGLOBIN 31.3 pg (27.0-31.0); MEAN CORPUSCULAR HGB CONC 35.3 g/dL (32.0-36.0); MEAN CORPUSCULAR VOLUME 88.7 fL (80.0-94.0); MEAN PLATELET VOLUME 9.6 fL (7.4-11.4); MONOCYTES # (AUTO) 0.4 10^3/uL (0.0-1.0); MONOCYTES % (AUTO) 5.6 %; NEUTROPHILS # (AUTO) 2.6 10^3/uL (1.5-6.6); NEUTROPHILS % (AUTO) 39.1 %; PLT - PLATELET COUNT 154 10^3/uL (130-450); RED BLOOD COUNT 4.51 10^6/uL (4.70-6.10); WHITE BLOOD COUNT 6.7 x10^3/uL (4.8-10.8)
[2020-08-21 08:31] LABS: CALCIUM 8.1 mg/dL (8.5-10.3); CREATININE 1.4 mg/dL (0.6-1.2); POTASSIUM 5.2 mmol/L (3.5-5.0)
[2020-08-21 08:41] LABS: RBC MORPHOLOGY (MULTIPLE) 2+ ANISOCYTOSIS (NORMAL)
[2020-08-21 14:04] LABS: ESTIMATED AVERAGE GLUCOSE 65 mg/dL (70-100); HEMOGLOBIN A1c% 3.9 % (4.27-6.07)
[2020-08-23 16:32] LABS: SOURCE BLOOD
== END 2020-08-21 07:57 | disposition home or self-care (01) ==
LOC: LAB 07:56
PROVIDERS: ATTEND Internal Medicine
DX: Z94.2 Lung transplant status (principal); Z79.899 Other long term (current) drug therapy
CPT/HCPCS: 36415; 80048; 80197; 82306; 83036; 84446; 84590; 85025; 87798

== ENCOUNTER 2020-08-30 07:59 | Outpatient (CLI) | payer OTHER ==
[2020-08-30 08:24] LABS: CALCIUM 8.1 mg/dL (8.5-10.3); CREATININE 1.3 mg/dL (0.6-1.2); POTASSIUM 4.6 mmol/L (3.5-5.0)
== END 2020-08-30 08:00 | disposition home or self-care (01) ==
LOC: LAB 07:59
PROVIDERS: ATTEND Internal Medicine
DX: Z94.2 Lung transplant status (principal); Z79.899 Other long term (current) drug therapy
CPT/HCPCS: 36415; 80048; 80197

== ENCOUNTER 2020-09-01 16:36 | Outpatient (CLI) | payer OTHER ==
--- OUTSIDE RECORDS SUMMARY | 2020-09-12 20:14 | EXTERNAL MEDICAL SUMMARY RPT | Continuity of Care Document ---
:1990 Demographics Phone Unavailable Preferred Language Azerbaijani Marital Status Unknown Advent Affiliation Unknown Race Unknown Ethnic Group Unknown Author Organization [facility] Address [address] [phone] Phone Care Team Providers Name Role Phone Billow Unavailable Unavailable Langmolino Unavailable Unavailable Problems date description facility 20200717 Adolescent idiopathic scoliosis, thorac olumbar region [facility] 20200717 Lung transplant status [facility] 20200717 Personal history of other specified con ditions [facility] 20200717 Scoliosis, unspecified 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 josé miguel Medications date description facility 20200717 Clonazepam 0.5 MG Oral Tablet [facility] ospital Procedures date description facility 20200717 Diagnosis [facility] date description facility 20200717 Finding [facility] date description facility 20200717 General Physician [facility] Vital Signs date measurement value source 20200717 BMI 20.9 kg/m2 20200717 BP_diastolic 80 mm[Hg] 20200717 BP_systolic 140 mm[Hg] 20200717 heart_rate 80 /min 20200717 height_metric 170.18 cm [id number] height_standard 67 in [id number] temperature_metric 37.22 C 46616526 temperature_standard 99 F 13443139 weight_metric 60.66 kg 26900164 weight_standard 133.73 lb Social History date description facility [id number]
== END 2020-09-01 16:37 | disposition home or self-care (01) ==
LOC: LAB 16:36
PROVIDERS: ATTEND Internal Medicine
DX: Z94.2 Lung transplant status (principal); Z79.899 Other long term (current) drug therapy
CPT/HCPCS: 36415; 81599; 86664; 86665

== ENCOUNTER 2020-09-14 07:54 | Outpatient (CLI) | payer OTHER ==
[2020-09-14 08:26] LABS: CALCIUM 8.5 mg/dL (8.5-10.3); CREATININE 1.1 mg/dL (0.6-1.2); POTASSIUM 4.4 mmol/L (3.5-5.0)
== END 2020-09-14 07:55 | disposition home or self-care (01) ==
LOC: LAB 07:54
PROVIDERS: ATTEND Internal Medicine
DX: Z94.2 Lung transplant status (principal); Z79.899 Other long term (current) drug therapy
CPT/HCPCS: 36415; 80048; 80197; 81599; 87799

== ENCOUNTER 2020-09-18 17:14 | Outpatient (CLI) | payer OTHER | END 2020-09-18 17:15 | disposition home or self-care (01) | LOC: COV 17:14 | PROVIDERS: ATTEND Physician Assistant | DX: Z01.812 Encounter for preprocedural laboratory examination (principal); Z94.2 Lung transplant status; T81.89XD Other complications of procedures, not elsewhere classified, subsequent encounter; Z20.822 Contact with and (suspected) exposure to COVID-19 ==

== ENCOUNTER 2020-10-04 08:05 | Outpatient (CLI) | payer OTHER ==
[2020-10-04 08:36] LABS: CALCIUM 8.8 mg/dL (8.5-10.3)
== END 2020-10-04 08:06 | disposition home or self-care (01) ==
LOC: LAB 08:05
PROVIDERS: ATTEND Internal Medicine
DX: Z94.2 Lung transplant status (principal); Z79.899 Other long term (current) drug therapy
CPT/HCPCS: 36415; 80048; 80197

== ENCOUNTER 2020-11-15 07:41 | Outpatient (CLI) | payer OTHER ==
[2020-11-15 08:01] LABS: BASOPHILS # (AUTO) 0.1 10^3/uL (0.0-0.1); BASOPHILS % (AUTO) 0.9 %; EOSINOPHILS # (AUTO) 1.1 10^3/uL (0.0-0.7); EOSINOPHILS % (AUTO) 19.5 %; HCT - HEMATOCRIT 35.8 % (42.0-52.0); HGB - HEMOGLOBIN 12.5 g/dL (14.0-18.0); LYMPHOCYTES # (AUTO) 1.6 10^3/uL (1.5-3.5); LYMPHOCYTES % (AUTO) 28.7 %; MEAN CORPUSCULAR HEMOGLOBIN 30.7 pg (27.0-31.0); MEAN CORPUSCULAR HGB CONC 34.9 g/dL (32.0-36.0); MONOCYTES # (AUTO) 0.4 10^3/uL (0.0-1.0); MONOCYTES % (AUTO) 6.9 %; NEUTROPHILS # (AUTO) 2.4 10^3/uL (1.5-6.6); NEUTROPHILS % (AUTO) 43.8 %; PLT - PLATELET COUNT 163 10^3/uL (130-450); RED BLOOD COUNT 4.07 10^6/uL (4.70-6.10); RED CELL DISTRIBUTION WIDTH 14.2 % (12.0-15.0); WHITE BLOOD COUNT 5.5 x10^3/uL (4.8-10.8)
[2020-11-15 08:09] LABS: CALCIUM 8.9 mg/dL (8.5-10.3)
[2020-11-15 08:25] LABS: RBC MORPHOLOGY (MULTIPLE) 2+ ANISOCYTOSIS (NORMAL); SLIDE REVIEW? Indicated
== END 2020-11-15 07:42 | disposition home or self-care (01) ==
LOC: LAB 07:41
PROVIDERS: ATTEND Internal Medicine
DX: Z94.2 Lung transplant status (principal); Z79.899 Other long term (current) drug therapy
CPT/HCPCS: 36415; 80048; 80197; 85025

== ENCOUNTER 2021-05-10 08:01 | Outpatient (CLI) | payer OTHER ==
[2021-05-10 08:38] LABS: CALCIUM 8.1 mg/dL (8.5-10.3); CREATININE 1.2 mg/dL (0.6-1.2); POTASSIUM 5.1 mmol/L (3.5-5.0)
[2021-05-10 08:45] LABS: BASOPHILS # (AUTO) 0.1 10^3/uL (0.0-0.1); BASOPHILS % (AUTO) 0.8 %; EOSINOPHILS # (AUTO) 1.4 10^3/uL (0.0-0.7); EOSINOPHILS % (AUTO) 19.4 %; HCT - HEMATOCRIT 38.6 % (42.0-52.0); HGB - HEMOGLOBIN 13.5 g/dL (14.0-18.0); LYMPHOCYTES # (AUTO) 2.3 10^3/uL (1.5-3.5); LYMPHOCYTES % (AUTO) 31.4 %; MEAN CORPUSCULAR HEMOGLOBIN 30.8 pg (27.0-31.0); MEAN CORPUSCULAR VOLUME 87.9 fL (80.0-94.0); MEAN PLATELET VOLUME 9.8 fL (7.4-11.4); MONOCYTES # (AUTO) 0.4 10^3/uL (0.0-1.0); MONOCYTES % (AUTO) 5.6 %; NEUTROPHILS # (AUTO) 3.1 10^3/uL (1.5-6.6); NEUTROPHILS % (AUTO) 42.5 %; PLT - PLATELET COUNT 172 10^3/uL (130-450); RED BLOOD COUNT 4.39 10^6/uL (4.70-6.10); RED CELL DISTRIBUTION WIDTH 14.6 % (12.0-15.0); WHITE BLOOD COUNT 7.3 x10^3/uL (4.8-10.8)
[2021-05-10 08:47] LABS: SLIDE REVIEW? Indicated
[2021-05-10 09:57] LABS: PLATELET ESTIMATE, MANUAL NORMAL (130-450,000) (NORMAL); PLATELET MORPHOLOGY NORMAL APPEARANCE (NORMAL); RBC MORPHOLOGY (MULTIPLE) NORMAL APPEARANCE (NORMAL)
== END 2021-05-10 08:02 | disposition home or self-care (01) ==
LOC: LAB 08:01
PROVIDERS: ATTEND Internal Medicine
DX: Z94.2 Lung transplant status (principal); Z79.899 Other long term (current) drug therapy
CPT/HCPCS: 36415; 80048; 80197; 85025

== ENCOUNTER 2021-05-29 08:05 | Outpatient (CLI) | payer OTHER ==
[2021-05-29 08:36] LABS: CALCIUM 8.4 mg/dL (8.5-10.3); POTASSIUM 5.5 mmol/L (3.5-5.0)
== END 2021-05-29 08:06 | disposition home or self-care (01) ==
LOC: LAB 08:05
PROVIDERS: ATTEND Internal Medicine
DX: Z94.2 Lung transplant status (principal); Z79.899 Other long term (current) drug therapy
CPT/HCPCS: 36415; 80048; 80197

== ENCOUNTER 2021-08-27 07:57 | Outpatient (CLI) | payer OTHER ==
[2021-08-27 08:38] LABS: BASOPHILS % (AUTO) 0.9 %; EOSINOPHILS # (AUTO) 0.3 10^3/uL (0.0-0.7); EOSINOPHILS % (AUTO) 6.4 %; HCT - HEMATOCRIT 38.3 % (42.0-52.0); HGB - HEMOGLOBIN 13.4 g/dL (14.0-18.0); LYMPHOCYTES # (AUTO) 1.5 10^3/uL (1.5-3.5); LYMPHOCYTES % (AUTO) 34.2 %; MEAN CORPUSCULAR HEMOGLOBIN 29.8 pg (27.0-31.0); MEAN CORPUSCULAR VOLUME 85.1 fL (80.0-94.0); MEAN PLATELET VOLUME 9.9 fL (7.4-11.4); MONOCYTES # (AUTO) 0.3 10^3/uL (0.0-1.0); MONOCYTES % (AUTO) 6.9 %; NEUTROPHILS # (AUTO) 2.3 10^3/uL (1.5-6.6); NEUTROPHILS % (AUTO) 51.4 %; PLT - PLATELET COUNT 141 10^3/uL (130-450); RED CELL DISTRIBUTION WIDTH 14.2 % (12.0-15.0); WHITE BLOOD COUNT 4.5 x10^3/uL (4.8-10.8)
[2021-08-27 08:57] LABS: ALBUMIN 3.9 g/dL (3.2-5.5); BILIRUBIN,DIRECT 0.2 mg/dL (0.1-0.5); BILIRUBIN,TOTAL 0.9 mg/dL (0.2-1.0); CALCIUM 8.7 mg/dL (8.5-10.3); MAGNESIUM 1.9 mg/dL (1.7-2.8); POTASSIUM 5.1 mmol/L (3.5-5.0); TOTAL PROTEIN 6.1 g/dL (6.7-8.2)
[2021-08-27 13:43] LABS: ESTIMATED AVERAGE GLUCOSE 77 mg/dL (70-100); HEMOGLOBIN A1c% 4.3 % (4.27-6.07)
[2021-08-30 19:11] LABS: CMV DNA QN RT PCR NOT DETECTED; SOURCE PLASMA
[2021-08-31 10:36] LABS: ALPHA-TOCOPHEROL 3.7 mg/L; BETA-GAMMA-TOCOPHEROL <1.0 mg/L (<4.4)
[2021-08-31 18:06] LABS: GLUCOSE-6-PHOSPHATE DEHYDROG >21.0 U/g Hgb (7.0-20.5)
== END 2021-08-27 07:58 | disposition home or self-care (01) ==
LOC: LAB 07:57
PROVIDERS: ATTEND Internal Medicine
DX: Z94.2 Lung transplant status (principal); Z79.899 Other long term (current) drug therapy
CPT/HCPCS: 36415; 80048; 80076; 80197; 81599; 82306; 82955; 83036; 83735; 84446; 84590; 85025; 87497; 87799

== ENCOUNTER 2022-05-15 07:44 | Outpatient (CLI) | payer OTHER ==
[2022-05-15 07:56] LABS: BASOPHILS # (AUTO) 0.1 10^3/uL (0.0-0.1); EOSINOPHILS # (AUTO) 0.6 10^3/uL (0.0-0.7); EOSINOPHILS % (AUTO) 10.3 %; HGB - HEMOGLOBIN 13.9 g/dL (14.0-18.0); LYMPHOCYTES # (AUTO) 1.6 10^3/uL (1.5-3.5); LYMPHOCYTES % (AUTO) 27.4 %; MEAN CORPUSCULAR HGB CONC 34.8 g/dL (32.0-36.0); MEAN CORPUSCULAR VOLUME 86.2 fL (80.0-94.0); MEAN PLATELET VOLUME 9.4 fL (7.4-11.4); MONOCYTES # (AUTO) 0.4 10^3/uL (0.0-1.0); MONOCYTES % (AUTO) 6.8 %; NEUTROPHILS # (AUTO) 3.1 10^3/uL (1.5-6.6); NEUTROPHILS % (AUTO) 54.2 %; PLT - PLATELET COUNT 153 10^3/uL (130-450); RED BLOOD COUNT 4.64 10^6/uL (4.70-6.10); RED CELL DISTRIBUTION WIDTH 13.8 % (12.0-15.0); WHITE BLOOD COUNT 5.7 x10^3/uL (4.8-10.8)
[2022-05-15 08:06] LABS: CALCIUM 8.7 mg/dL (8.5-10.3); POTASSIUM 4.9 mmol/L (3.5-5.0)
== END 2022-05-15 07:45 | disposition home or self-care (01) ==
LOC: LAB 07:44
PROVIDERS: ATTEND Internal Medicine
DX: Z79.899 Other long term (current) drug therapy (principal); Z94.2 Lung transplant status
CPT/HCPCS: 36415; 80048; 80197; 85025

== ENCOUNTER 2022-06-06 07:47 | Outpatient (CLI) | payer OTHER ==
[2022-06-06 08:24] LABS: CALCIUM 8.8 mg/dL (8.5-10.3); CREATININE 1.1 mg/dL (0.6-1.2); POTASSIUM 4.6 mmol/L (3.5-5.0)
== END 2022-06-06 07:48 | disposition home or self-care (01) ==
LOC: LAB 07:47
PROVIDERS: ATTEND Internal Medicine
DX: Z94.2 Lung transplant status (principal); Z79.899 Other long term (current) drug therapy
CPT/HCPCS: 36415; 80048; 80197

== ENCOUNTER 2022-06-24 07:45 | Outpatient (CLI) | payer OTHER ==
[2022-06-24 08:04] LABS: CALCIUM 8.3 mg/dL (8.5-10.3); CREATININE 1.2 mg/dL (0.6-1.2)
== END 2022-06-24 07:46 | disposition home or self-care (01) ==
LOC: LAB 07:45
PROVIDERS: ATTEND Internal Medicine
DX: Z79.899 Other long term (current) drug therapy (principal); Z94.2 Lung transplant status
CPT/HCPCS: 36415; 80048; 80197

== ENCOUNTER 2022-07-26 07:47 | Outpatient (CLI) | payer OTHER ==
[2022-07-26 07:59] LABS: BASOPHILS # (AUTO) 0.1 10^3/uL (0.0-0.1); EOSINOPHILS # (AUTO) 0.7 10^3/uL (0.0-0.7); EOSINOPHILS % (AUTO) 14.7 %; HCT - HEMATOCRIT 40.6 % (42.0-52.0); HGB - HEMOGLOBIN 14.3 g/dL (14.0-18.0); LYMPHOCYTES # (AUTO) 1.6 10^3/uL (1.5-3.5); MEAN CORPUSCULAR HEMOGLOBIN 30.5 pg (27.0-31.0); MEAN CORPUSCULAR HGB CONC 35.2 g/dL (32.0-36.0); MEAN CORPUSCULAR VOLUME 86.6 fL (80.0-94.0); MEAN PLATELET VOLUME 9.7 fL (7.4-11.4); MONOCYTES # (AUTO) 0.4 10^3/uL (0.0-1.0); MONOCYTES % (AUTO) 7.6 %; NEUTROPHILS # (AUTO) 2.2 10^3/uL (1.5-6.6); NEUTROPHILS % (AUTO) 44.5 %; PLT - PLATELET COUNT 162 10^3/uL (130-450); RED BLOOD COUNT 4.69 10^6/uL (4.70-6.10); RED CELL DISTRIBUTION WIDTH 14.8 % (12.0-15.0); WHITE BLOOD COUNT 4.8 x10^3/uL (4.8-10.8)
[2022-07-26 08:11] LABS: CALCIUM 8.6 mg/dL (8.5-10.3); CREATININE 1.1 mg/dL (0.6-1.2); POTASSIUM 4.2 mmol/L (3.5-5.0)
== END 2022-07-26 07:48 | disposition home or self-care (01) ==
LOC: LAB 07:47
PROVIDERS: ATTEND Internal Medicine
DX: Z79.899 Other long term (current) drug therapy (principal); Z94.2 Lung transplant status
CPT/HCPCS: 36415; 80048; 80197; 85025

== ENCOUNTER 2022-08-12 08:04 | Outpatient (CLI) | payer OTHER ==
[2022-08-12 08:40] LABS: CALCIUM 8.7 mg/dL (8.5-10.3); POTASSIUM 4.5 mmol/L (3.5-5.0)
== END 2022-08-12 08:05 | disposition home or self-care (01) ==
LOC: LAB 08:04
PROVIDERS: ATTEND Internal Medicine
DX: Z79.899 Other long term (current) drug therapy (principal); Z94.2 Lung transplant status
CPT/HCPCS: 36415; 80048; 80197

== ENCOUNTER 2022-11-13 07:45 | Outpatient (CLI) | payer OTHER ==
[2022-11-13 07:57] LABS: BASOPHILS # (AUTO) 0.1 10^3/uL (0.0-0.1); BASOPHILS % (AUTO) 0.9 %; EOSINOPHILS # (AUTO) 0.4 10^3/uL (0.0-0.7); HCT - HEMATOCRIT 44.7 % (42.0-52.0); HGB - HEMOGLOBIN 15.8 g/dL (14.0-18.0); LYMPHOCYTES # (AUTO) 1.6 10^3/uL (1.5-3.5); LYMPHOCYTES % (AUTO) 28.3 %; MEAN CORPUSCULAR HEMOGLOBIN 29.9 pg (27.0-31.0); MEAN CORPUSCULAR HGB CONC 35.3 g/dL (32.0-36.0); MEAN CORPUSCULAR VOLUME 84.5 fL (80.0-94.0); MEAN PLATELET VOLUME 9.4 fL (7.4-11.4); MONOCYTES # (AUTO) 0.5 10^3/uL (0.0-1.0); MONOCYTES % (AUTO) 9.4 %; NEUTROPHILS # (AUTO) 3.1 10^3/uL (1.5-6.6); NEUTROPHILS % (AUTO) 54.2 %; PLT - PLATELET COUNT 183 10^3/uL (130-450); RED BLOOD COUNT 5.29 10^6/uL (4.70-6.10); RED CELL DISTRIBUTION WIDTH 14.1 % (12.0-15.0); WHITE BLOOD COUNT 5.7 x10^3/uL (4.8-10.8)
[2022-11-13 08:05] LABS: CALCIUM 8.9 mg/dL (8.5-10.3); CREATININE 0.9 mg/dL (0.6-1.2); POTASSIUM 4.1 mmol/L (3.5-5.0)
== END 2022-11-13 07:46 | disposition home or self-care (01) ==
LOC: LAB 07:45
PROVIDERS: ATTEND Internal Medicine
DX: Z79.899 Other long term (current) drug therapy (principal); Z94.2 Lung transplant status
CPT/HCPCS: 36415; 80048; 80197; 85025

== ENCOUNTER 2022-11-20 08:00 | Outpatient (CLI) | payer OTHER ==
[2022-11-20 20:31] LABS: BASOPHILS % (AUTO) 0.6 %; EOSINOPHILS # (AUTO) 0.3 10^3/uL (0.0-0.7); EOSINOPHILS % (AUTO) 5.3 %; HCT - HEMATOCRIT 38.3 % (42.0-52.0); HGB - HEMOGLOBIN 13.5 g/dL (14.0-18.0); LYMPHOCYTES # (AUTO) 1.3 10^3/uL (1.5-3.5); LYMPHOCYTES % (AUTO) 20.8 %; MEAN CORPUSCULAR HEMOGLOBIN 30.2 pg (27.0-31.0); MEAN CORPUSCULAR HGB CONC 35.2 g/dL (32.0-36.0); MEAN CORPUSCULAR VOLUME 85.7 fL (80.0-94.0); MEAN PLATELET VOLUME 10.3 fL (7.4-11.4); MONOCYTES # (AUTO) 0.3 10^3/uL (0.0-1.0); MONOCYTES % (AUTO) 5.3 %; NEUTROPHILS # (AUTO) 4.4 10^3/uL (1.5-6.6); NEUTROPHILS % (AUTO) 67.7 %; PLT - PLATELET COUNT 163 10^3/uL (130-450); RED BLOOD COUNT 4.47 10^6/uL (4.70-6.10); RED CELL DISTRIBUTION WIDTH 14.1 % (12.0-15.0); WHITE BLOOD COUNT 6.5 x10^3/uL (4.8-10.8)
[2022-11-20 20:36] LABS: ESTIMATED AVERAGE GLUCOSE 74 mg/dL (70-100); HEMOGLOBIN A1c% 4.2 % (4.27-6.07)
[2022-11-20 20:37] LABS: ALBUMIN 4.1 g/dL (3.2-5.5); ALBUMIN/GLOBULIN RATIO 1.6 (1.0-2.2); BILIRUBIN,TOTAL 1.1 mg/dL (0.2-1.0); CALCIUM 8.4 mg/dL (8.5-10.3); CREATININE 0.9 mg/dL (0.6-1.2); TOTAL PROTEIN 6.7 g/dL (6.7-8.2)
[2022-11-20 20:53] LABS: THYROID STIMULATING HORMONE 2.02 uIU/mL (0.34-5.60)
== END 2022-11-20 23:59 | disposition home or self-care (01) ==
LOC: LAB.N 08:00
PROVIDERS: ATTEND Registered Nurse
DX: R10.9 Unspecified abdominal pain (principal); R19.5 Other fecal abnormalities; Z94.2 Lung transplant status; Z79.899 Other long term (current) drug therapy
CPT/HCPCS: 36415; 80053; 80197; 83036; 83690; 84443; 85025

== ENCOUNTER 2023-01-11 20:51 | Outpatient (CLI) | payer OTHER | END 2023-01-11 23:59 | disposition EMS.NT | LOC: EMS 20:51 | DX: R51.9 Headache, unspecified (principal); R11.2 Nausea with vomiting, unspecified ==

== ENCOUNTER 2023-01-16 07:55 | Outpatient (CLI) | payer OTHER ==
[2023-01-16 08:07] LABS: BASOPHILS # (AUTO) 0.1 10^3/uL (0.0-0.1); BASOPHILS % (AUTO) 0.9 %; EOSINOPHILS # (AUTO) 0.2 10^3/uL (0.0-0.7); EOSINOPHILS % (AUTO) 3.8 %; HCT - HEMATOCRIT 42.5 % (42.0-52.0); HGB - HEMOGLOBIN 15.2 g/dL (14.0-18.0); LYMPHOCYTES # (AUTO) 2.1 10^3/uL (1.5-3.5); MEAN CORPUSCULAR HEMOGLOBIN 30.3 pg (27.0-31.0); MEAN CORPUSCULAR HGB CONC 35.8 g/dL (32.0-36.0); MEAN CORPUSCULAR VOLUME 84.8 fL (80.0-94.0); MEAN PLATELET VOLUME 9.3 fL (7.4-11.4); MONOCYTES # (AUTO) 0.6 10^3/uL (0.0-1.0); MONOCYTES % (AUTO) 8.8 %; NEUTROPHILS # (AUTO) 3.4 10^3/uL (1.5-6.6); NEUTROPHILS % (AUTO) 53.3 %; PLT - PLATELET COUNT 179 10^3/uL (130-450); RED BLOOD COUNT 5.01 10^6/uL (4.70-6.10); RED CELL DISTRIBUTION WIDTH 13.8 % (12.0-15.0); WHITE BLOOD COUNT 6.4 x10^3/uL (4.8-10.8)
[2023-01-16 08:33] LABS: CALCIUM 9.2 mg/dL (8.5-10.3); CREATININE 1.1 mg/dL (0.6-1.3); POTASSIUM 4.5 mmol/L (3.5-4.5)
== END 2023-01-16 07:56 | disposition home or self-care (01) ==
LOC: LAB 07:55
PROVIDERS: ATTEND Internal Medicine
DX: Z79.899 Other long term (current) drug therapy (principal); Z94.2 Lung transplant status
CPT/HCPCS: 36415; 80048; 80197; 85025

== ENCOUNTER 2023-02-20 07:45 | Outpatient (CLI) | payer OTHER ==
[2023-02-20 07:57] LABS: BASOPHILS # (AUTO) 0.1 10^3/uL (0.0-0.1); BASOPHILS % (AUTO) 0.7 %; EOSINOPHILS # (AUTO) 0.3 10^3/uL (0.0-0.7); EOSINOPHILS % (AUTO) 4.4 %; HCT - HEMATOCRIT 43.7 % (42.0-52.0); HGB - HEMOGLOBIN 15.4 g/dL (14.0-18.0); LYMPHOCYTES # (AUTO) 1.9 10^3/uL (1.5-3.5); LYMPHOCYTES % (AUTO) 27.7 %; MEAN CORPUSCULAR HEMOGLOBIN 29.8 pg (27.0-31.0); MEAN CORPUSCULAR HGB CONC 35.2 g/dL (32.0-36.0); MEAN CORPUSCULAR VOLUME 84.7 fL (80.0-94.0); MEAN PLATELET VOLUME 9.5 fL (7.4-11.4); MONOCYTES # (AUTO) 0.6 10^3/uL (0.0-1.0); MONOCYTES % (AUTO) 8.1 %; PLT - PLATELET COUNT 173 10^3/uL (130-450); RED BLOOD COUNT 5.16 10^6/uL (4.70-6.10); WHITE BLOOD COUNT 6.8 x10^3/uL (4.8-10.8)
[2023-02-20 08:10] LABS: CALCIUM 9.4 mg/dL (8.5-10.3); POTASSIUM 4.3 mmol/L (3.5-4.5)
== END 2023-02-20 07:46 | disposition home or self-care (01) ==
LOC: LAB 07:45
PROVIDERS: ATTEND Internal Medicine
DX: Z94.2 Lung transplant status (principal); Z79.899 Other long term (current) drug therapy
CPT/HCPCS: 36415; 80048; 80197; 85025

== ENCOUNTER 2023-03-12 17:33 | Emergency (ER) | payer OTHER ==
[2023-03-12] MEDS ORDERED: predniSONE 20 MG TABLET PO STA (18:10)
--- NOTE | 2023-03-12 18:35 | ED Physician Documentation ---
History of Present Illness - Stated complaint Stated Complaint: ALLERGIC REACTION - Chief complaint Chief Complaint: Allergic Rx - History obtained from History obtained from: Patient - History of Present Illness Timing: Today Pain level max: 0 Pain level now: 0 - Additonal information Additional information: 32-year-old male with a history of cystic fibrosis, status post lung transplant presents to the emergency department with hives on the bilateral arms, this started after eating salmon today. Took Benadryl and the rash is improving. No difficulty speaking or swallowing. No difficulty breathing. No history of anaphylaxis. He is currently on a maintenance dose of prednisone, 5 mg daily. Review of Systems Constitutional: denies: Fever, Chills Nose: denies: Rhinorrhea / runny nose, Congestion GI: denies: Vomiting, Diarrhea Musculoskeletal: denies: Neck pain, Back pain Neurologic: denies: Headache PD PAST MEDICAL HISTORY - Past Medical History Cardiovascular: None Respiratory: Cystic fibrosis Neuro: None Endocrine/Autoimmune: None GI: None : None HEENT: None Psych: None Musculoskeletal: None Derm: None - Past Surgical History Past Surgical History: Yes Derm: Other - Present Medications Home Medications: Ambulatory Orders Medication Instructions Recorded Confirmed Aspirin [Adult Low Dose Aspirin EC] 81 mg PO DAILY 05/14/19 07/05/19 Calcium Citrate 1,900 mg PO BID 05/14/19 07/05/19 Cholecalciferol (Vitamin D3) 1,000 unit PO DAILY 05/14/19 07/05/19 [Vitamin D3] Magnesium Oxide [Mag Ox] 800 mg ORAL BID 05/14/19 07/05/19 Omeprazole 20 mg PO DAILY 05/14/19 07/05/19 Pravastatin [Pravachol] 20 mg PO DAILY 05/14/19 07/05/19 Sulfamethoxazole/Trimethoprim 1 each PO DAILY 05/14/19 07/05/19 [Bactrim 400-80 mg Tablet] Tacrolimus [Prograf] 2 mg PO BID 05/14/19 07/05/19 Vitamin B Complex 1 each PO DAILY 05/14/19 07/05/19 mycophenolate mofetiL 500 mg PO BID 05/14/19 07/05/19 [Mycophenolate Mofetil] predniSONE [Prednisone] 5 mg PO DAILY 05/14/19 07/05/19 Clindamycin [Cleocin] 150 mg PO TID 5 Days #15 cap 07/18/20 Cyclobenzaprine HCl 5 mg PO DAILY PRN 07/18/20 07/18/20 Oxycodone HCl/Acetaminophen 1 each PO Q6H PRN #10 tab 07/18/20 [Percocet 5-325 mg Tablet] Sertraline HCl 100 mg PO DAILY 07/18/20 07/18/20 clonazePAM [Clonazepam] 0.5 mg PO BID 07/18/20 07/18/20 predniSONE [Deltasone] 40 mg PO DAILY #8 tablet 03/12/23 - Allergies Allergies/Adverse Reactions: Allergies Allergy/AdvReac Type Severity Reaction Status Date / Time latex Allergy Unknown Verified 07/18/20 01:22 shellfish derived AdvReac Hives Verified 03/12/23 17:57 - Social History Does the pt smoke?: No Smoking Status: Never smoker Does the pt drink ETOH?: No Does the pt have substance abuse?: No - Immunizations Immunizations are current?: Yes - POLST Patient has POLST: No PD ED PE NORMAL - Vitals Vital signs reviewed: Yes - General General: Alert and oriented X 3, No acute distress - HEENT HEENT: PERRL, Moist mucous membranes, Pharynx benign (Normal phonation. No trismus. No oropharyngeal swelling), Other (No lip swelling) - Neck Neck: Supple, no meningeal sign - Cardiac Cardiac: RRR, Strong equal pulses - Respiratory Respiratory: No respiratory distress, Clear bilaterally, Other (No stridor or wheezing) - Abdomen Abdomen: Soft, Non tender, Non distended - Derm Derm: Warm and dry, Other (Mild urticaria to the bilateral upper extremities.) - Extremities Extremities: No edema, No calf tenderness / cord - Neuro Neuro: Alert and oriented X 3 - Psych Psych: Normal mood, Normal affect Results - Vitals Vitals: Vital Signs - 24 hr 03/12/23 03/12/23 03/12/23 17:51 17:56 18:37 Temperature 36.8 C 36.8 C 36.6 C Heart Rate 78 78 72 Respiratory 20 20 16 Rate Blood Pressure 114/69 114/69 116/70 O2 Saturation 99 99 100 Oxygen O2 Source Room air PD Medical Decision Making - ED course Complexity details: considered differential, d/w patient, d/w family ED course: Patient with mild urticaria. We will increase the steroids to 40 mg p.o. daily of prednisone. Can utilize cetirizine as needed at home. No evidence of anaphylaxis. No indication for epinephrine. Patient counseled regarding signs and symptoms for which I believe and urgent re-evaluation would be necessary. Patient with good understanding of and agreement to plan and is comfortable going home at this time This document was made in part using voice recognition software. While efforts are made to proofread this document, sound alike and grammatical errors may occur. Departure - Departure Disposition: 01 Home, Self Care Clinical Impression: Urticaria Allergic reaction Qualifiers: Encounter type: initial encounter Qualified Code(s): T78.40XA - Allergy, unspecified, initial encounter Condition: Good Instructions: ED Urticaria Follow-Up: Montserrat Lopez PA [Primary Care Provider] - Prescriptions: predniSONE [Deltasone] 40 mg PO DAILY #8 tablet Comments: Please follow-up with your doctor as needed for further care. Please return if you worsen. Your prescriptions were sent to [facility]. Forms: PCP List Discharge Date/Time: 03/12/23 18:37
[2023-03-12 18:43] VITALS: BP 116/70; O2SAT 100
== END 2023-03-12 18:37 | disposition home or self-care (01) ==
LOC: ED 17:33
DX: T78.40XA Allergy, unspecified, initial encounter (principal)
CPT/HCPCS: 99282; 99283; J7512

== ENCOUNTER 2023-04-23 07:50 | Outpatient (CLI) | payer OTHER ==
[2023-04-23 08:11] LABS: BASOPHILS # (AUTO) 0.1 10^3/uL (0.0-0.1); BASOPHILS % (AUTO) 0.7 %; EOSINOPHILS # (AUTO) 0.2 10^3/uL (0.0-0.7); EOSINOPHILS % (AUTO) 3.1 %; HCT - HEMATOCRIT 41.8 % (42.0-52.0); HGB - HEMOGLOBIN 14.8 g/dL (14.0-18.0); LYMPHOCYTES # (AUTO) 1.8 10^3/uL (1.5-3.5); LYMPHOCYTES % (AUTO) 24.8 %; MEAN CORPUSCULAR HEMOGLOBIN 30.1 pg (27.0-31.0); MEAN CORPUSCULAR HGB CONC 35.4 g/dL (32.0-36.0); MEAN CORPUSCULAR VOLUME 85.1 fL (80.0-94.0); MEAN PLATELET VOLUME 9.6 fL (7.4-11.4); MONOCYTES # (AUTO) 0.7 10^3/uL (0.0-1.0); MONOCYTES % (AUTO) 10.2 %; NEUTROPHILS # (AUTO) 4.3 10^3/uL (1.5-6.6); NEUTROPHILS % (AUTO) 60.9 %; PLT - PLATELET COUNT 173 10^3/uL (130-450); RED BLOOD COUNT 4.91 10^6/uL (4.70-6.10); RED CELL DISTRIBUTION WIDTH 14.2 % (12.0-15.0); WHITE BLOOD COUNT 7.1 x10^3/uL (4.8-10.8)
[2023-04-23 08:32] LABS: CALCIUM 9.3 mg/dL (8.5-10.3); POTASSIUM 4.2 mmol/L (3.5-4.5)
== END 2023-04-23 07:51 | disposition home or self-care (01) ==
LOC: LAB 07:50
PROVIDERS: ATTEND Internal Medicine
DX: Z94.2 Lung transplant status (principal); Z79.899 Other long term (current) drug therapy
CPT/HCPCS: 36415; 80048; 80197; 85025

== ENCOUNTER 2023-06-04 07:41 | Outpatient (CLI) | payer OTHER ==
[2023-06-04 07:59] LABS: BASOPHILS # (AUTO) 0.1 10^3/uL (0.0-0.1); BASOPHILS % (AUTO) 0.9 %; EOSINOPHILS # (AUTO) 0.3 10^3/uL (0.0-0.7); EOSINOPHILS % (AUTO) 5.1 %; HCT - HEMATOCRIT 42.4 % (42.0-52.0); HGB - HEMOGLOBIN 14.9 g/dL (14.0-18.0); LYMPHOCYTES # (AUTO) 1.8 10^3/uL (1.5-3.5); LYMPHOCYTES % (AUTO) 32.4 %; MEAN CORPUSCULAR HEMOGLOBIN 29.6 pg (27.0-31.0); MEAN CORPUSCULAR HGB CONC 35.1 g/dL (32.0-36.0); MEAN CORPUSCULAR VOLUME 84.3 fL (80.0-94.0); MEAN PLATELET VOLUME 9.4 fL (7.4-11.4); MONOCYTES # (AUTO) 0.5 10^3/uL (0.0-1.0); MONOCYTES % (AUTO) 8.9 %; NEUTROPHILS # (AUTO) 2.9 10^3/uL (1.5-6.6); NEUTROPHILS % (AUTO) 52.7 %; PLT - PLATELET COUNT 165 10^3/uL (130-450); RED BLOOD COUNT 5.03 10^6/uL (4.70-6.10); RED CELL DISTRIBUTION WIDTH 14.2 % (12.0-15.0); WHITE BLOOD COUNT 5.5 x10^3/uL (4.8-10.8)
[2023-06-04 08:34] LABS: CALCIUM 9.3 mg/dL (8.5-10.3); CREATININE 1.1 mg/dL (0.6-1.3); POTASSIUM 4.2 mmol/L (3.5-4.5)
== END 2023-06-04 07:42 | disposition home or self-care (01) ==
LOC: LAB 07:41
PROVIDERS: ATTEND Internal Medicine
DX: Z09 Encounter for follow-up examination after completed treatment for conditions other than malignant neoplasm (principal); Z94.2 Lung transplant status; Z79.899 Other long term (current) drug therapy
CPT/HCPCS: 36415; 80048; 80197; 85025

== ENCOUNTER 2023-07-31 07:36 | Outpatient (CLI) | payer OTHER ==
[2023-07-31 07:58] LABS: BASOPHILS # (AUTO) 0.1 10^3/uL (0.0-0.1); BASOPHILS % (AUTO) 0.8 %; EOSINOPHILS # (AUTO) 0.2 10^3/uL (0.0-0.7); EOSINOPHILS % (AUTO) 2.5 %; HCT - HEMATOCRIT 42.7 % (42.0-52.0); HGB - HEMOGLOBIN 14.8 g/dL (14.0-18.0); LYMPHOCYTES # (AUTO) 1.3 10^3/uL (1.5-3.5); LYMPHOCYTES % (AUTO) 19.6 %; MEAN CORPUSCULAR HEMOGLOBIN 29.9 pg (27.0-31.0); MEAN CORPUSCULAR HGB CONC 34.7 g/dL (32.0-36.0); MEAN CORPUSCULAR VOLUME 86.3 fL (80.0-94.0); MEAN PLATELET VOLUME 9.9 fL (7.4-11.4); MONOCYTES # (AUTO) 0.5 10^3/uL (0.0-1.0); MONOCYTES % (AUTO) 7.9 %; NEUTROPHILS # (AUTO) 4.5 10^3/uL (1.5-6.6); NEUTROPHILS % (AUTO) 68.9 %; PLT - PLATELET COUNT 185 10^3/uL (130-450); RED BLOOD COUNT 4.95 10^6/uL (4.70-6.10); WHITE BLOOD COUNT 6.5 x10^3/uL (4.8-10.8)
[2023-07-31 08:05] LABS: CALCIUM 9.9 mg/dL (8.5-10.3); CREATININE 1.1 mg/dL (0.6-1.3); POTASSIUM 4.4 mmol/L (3.5-4.5)
== END 2023-07-31 07:37 | disposition home or self-care (01) ==
LOC: LAB 07:36
PROVIDERS: ATTEND Internal Medicine
DX: Z48.24 Encounter for aftercare following lung transplant (principal); Z79.899 Other long term (current) drug therapy; Z94.2 Lung transplant status
CPT/HCPCS: 36415; 80048; 80197; 85025

== ENCOUNTER 2023-09-09 10:27 | Emergency (ER) | payer OTHER ==
[2023-09-09 11:16] LABS: BASOPHILS % (AUTO) 0.4 %; EOSINOPHILS # (AUTO) 0.2 10^3/uL (0.0-0.7); EOSINOPHILS % (AUTO) 1.6 %; HCT - HEMATOCRIT 45.6 % (42.0-52.0); HGB - HEMOGLOBIN 15.9 g/dL (14.0-18.0); LYMPHOCYTES # (AUTO) 1.1 10^3/uL (1.5-3.5); LYMPHOCYTES % (AUTO) 11.1 %; MEAN CORPUSCULAR HEMOGLOBIN 29.4 pg (27.0-31.0); MEAN CORPUSCULAR HGB CONC 34.9 g/dL (32.0-36.0); MEAN CORPUSCULAR VOLUME 84.3 fL (80.0-94.0); MEAN PLATELET VOLUME 9.6 fL (7.4-11.4); MONOCYTES # (AUTO) 0.5 10^3/uL (0.0-1.0); MONOCYTES % (AUTO) 5.6 %; NEUTROPHILS # (AUTO) 7.7 10^3/uL (1.5-6.6); NEUTROPHILS % (AUTO) 80.9 %; PLT - PLATELET COUNT 174 10^3/uL (130-450); RED BLOOD COUNT 5.41 10^6/uL (4.70-6.10); WHITE BLOOD COUNT 9.5 x10^3/uL (4.8-10.8)
--- NOTE | 2023-09-09 11:31 | ED Physician Documentation ---
PD HPI ABD PAIN - Stated complaint Stated Complaint: NAUSEA,CRAMPING - Chief complaint Chief Complaint: Abd Pain - Additional information Additional information: 32-year-old male with history of cystic fibrosis bilateral lung transplant 2019 presents emergency department for midepigastric and abdominal pain. Patient said that he started feeling unwell yesterday he said it was just acid reflux or GERD and overnight he said he was unable to sleep at all because of the severity of his nausea vomiting he said he threw up maybe about 12 times. Patient is on tacrolimus and mycophenolate for immunosuppressants he has had no change in these medications and no history of rejection. He has had no complications since his lung transplant in 2019 PD PAST MEDICAL HISTORY - Past Medical History Cardiovascular: None Respiratory: Cystic fibrosis Neuro: None Endocrine/Autoimmune: None GI: None : None HEENT: None Psych: None Musculoskeletal: None Derm: None - Past Surgical History Past Surgical History: Yes Derm: Other - Present Medications Home Medications: Ambulatory Orders Medication Instructions Recorded Confirmed Aspirin [Adult Low Dose Aspirin EC] 81 mg PO DAILY 05/14/19 09/09/23 Calcium Citrate 1,900 mg PO BID 05/14/19 09/09/23 Cholecalciferol (Vitamin D3) 1,000 unit PO DAILY 05/14/19 09/09/23 [Vitamin D3] Magnesium Oxide [Mag Ox] 800 mg ORAL BID 05/14/19 09/09/23 Omeprazole 20 mg PO DAILY 05/14/19 09/09/23 Pravastatin [Pravachol] 20 mg PO DAILY 05/14/19 09/09/23 Sulfamethoxazole/Trimethoprim 1 each PO DAILY 05/14/19 09/09/23 [Bactrim 400-80 mg Tablet] Tacrolimus [Prograf] 1 mg PO BID 05/14/19 09/09/23 Vitamin B Complex 1 each PO DAILY 05/14/19 09/09/23 mycophenolate mofetiL 500 mg PO BID 05/14/19 09/09/23 [Mycophenolate Mofetil] predniSONE [Prednisone] 5 mg PO DAILY 05/14/19 09/09/23 Cyclobenzaprine HCl 5 mg PO DAILY PRN 07/18/20 09/09/23 Sertraline HCl 100 mg PO DAILY 07/18/20 09/09/23 clonazePAM [Clonazepam] 0.5 mg PO BID 07/18/20 09/09/23 - Allergies Allergies/Adverse Reactions: Allergies Allergy/AdvReac Type Severity Reaction Status Date / Time latex Allergy Unknown Verified 09/09/23 10:40 shellfish derived AdvReac Hives Verified 09/09/23 10:40 - Social History Does the pt smoke?: No Smoking Status: Never smoker Does the pt drink ETOH?: No Does the pt have substance abuse?: No - Immunizations Immunizations are current?: Yes - POLST Patient has POLST: No PD ED PE NORMAL - Vitals Vital signs reviewed: Yes - General General: Alert and oriented X 3, No acute distress, Well developed/nourished - Cardiac Cardiac: RRR - Respiratory Respiratory: No respiratory distress, Clear bilaterally - Abdomen Abdomen: Soft, Other (generalized abdominal tenderness, decreased bowel sounds) - Back Back: No CVA TTP - Derm Derm: Normal color, Warm and dry, No rash - Neuro Neuro: Alert and oriented X 3, contact lens fitter 2-12 intact, No motor deficit, No sensory deficit, Normal speech - Psych Psych: Normal mood, Normal affect Results - Vitals Vitals: Vital Signs - 24 hr 09/09/23 09/09/23 09/09/23 10:36 12:43 14:00 Temperature 36.9 C Heart Rate 65 74 62 Respiratory 16 16 16 Rate Blood Pressure 138/78 H 136/79 H 146/85 H O2 Saturation 100 99 100 09/09/23 09/09/23 09/09/23 15:17 19:17 21:00 Temperature Heart Rate 68 90 71 Respiratory 18 18 18 Rate Blood Pressure 139/84 H 139/87 H 141/89 H O2 Saturation 100 97 98 Oxygen O2 Source Room air - EKG (time done) 1224 EKG releavant findings:: EKG personally interpreted by author of this note. Relevant findings are: Rate: Rate (enter#) (69) Rhythm: NSR Guild: Normal QRS: LVH Ischemia: Normal ST segments Computer interpretation: Agree with computer - Labs Labs: Laboratory Tests 09/09/23 09/09/23 09/09/23 11:11 11:11 11:11 WBC 9.5 RBC 5.41 Hgb 15.9 Hct 45.6 MCV 84.3 MCH 29.4 MCHC 34.9 RDW 14.0 Plt Count 174 MPV 9.6 Neut # (Auto) 7.7 H Lymph # (Auto) 1.1 L [place] # (Auto) 0.5 Eos # (Auto) 0.2 Baso # (Auto) 0.0 Absolute Nucleated RBC 0.00 Nucleated RBC % 0.0 Sodium 137 Potassium 4.4 Chloride 103 Carbon Dioxide 29 Anion Gap 5.0 L BUN 17 Creatinine 1.1 Estimated GFR (MDRD) 78 L Glucose 103 Calcium 9.8 Total Bilirubin 2.2 H AST 26 ALT 27 Alkaline Phosphatase 81 Troponin I High Sens 2.6 Total Protein 6.9 Albumin 4.6 Globulin 2.3 Albumin/Globulin Ratio 2.0 Lipase < 10 L Urine Color Urine Clarity Urine pH Ur Specific [place] Urine Protein Urine Glucose (UA) Urine Ketones Urine Occult Blood Urine Nitrite Urine Bilirubin Urine Urobilinogen Ur Leukocyte Esterase Ur Microscopic Review Urine Culture Comments Nasal Adenovirus (PCR) Nasal B. parapertussis DNA (PCR) Nasal Coronavir 229E PCR Nasal Coronavir HKU1 PCR Nasal Coronavir NL63 PCR Nasal Coronavir OC43 PCR Nasal Enterovir/Rhinovir PCR Nasal Influenza B PCR Nasal Influenza A PCR Nasal Parainfluen 1 PCR Nasal Parainfluen 2 PCR Nasal Parainfluen 3 PCR Nasal Parainfluen 4 PCR Nasal RSV (PCR) Nasal B.pertussis DNA PCR Nasal C.pneumoniae (PCR) Gilberto Human Metapneumo PCR Nasal M.pneumoniae (PCR) Nasal SARS-CoV-2 (PCR) 09/09/23 09/09/23 11:30 11:45 WBC RBC Hgb Hct MCV MCH MCHC RDW Plt Count MPV Neut # (Auto) Lymph # (Auto) Vil[place] # (Auto) Eos # (Auto) Baso # (Auto) Absolute Nucleated RBC Nucleated RBC % Sodium Potassium Chloride Carbon Dioxide Anion Gap BUN Creatinine Estimated GFR (MDRD) Glucose Calcium Total Bilirubin AST ALT Alkaline Phosphatase Troponin I High Sens Total Protein Albumin Globulin Albumin/Globulin Ratio Lipase Urine Color DARK YELLOW Urine Clarity CLEAR Urine pH 7.0 Ur Specific [place] 1.025 Urine Protein TRACE Urine Glucose (UA) NEGATIVE Urine Ketones 15 H Urine Occult Blood NEGATIVE Urine Nitrite NEGATIVE Urine Bilirubin NEGATIVE Urine Urobilinogen 0.2 (NORMAL) Ur Leukocyte Esterase NEGATIVE Ur Microscopic Review NOT INDICATED Urine Culture Comments NOT INDICATED Nasal Adenovirus (PCR) NOT DETECTED Nasal B. parapertussis DNA (PCR) NOT DETECTED Nasal Coronavir 229E PCR NOT DETECTED Nasal Coronavir HKU1 PCR NOT DETECTED Nasal Coronavir NL63 PCR NOT DETECTED Nasal Coronavir OC43 PCR NOT DETECTED Nasal Enterovir/Rhinovir PCR NOT DETECTED Nasal Influenza B PCR NOT DETECTED Nasal Influenza A PCR NOT DETECTED Nasal Parainfluen 1 PCR NOT DETECTED Nasal Parainfluen 2 PCR NOT DETECTED Nasal Parainfluen 3 PCR NOT DETECTED Nasal Parainfluen 4 PCR NOT DETECTED Nasal RSV (PCR) NOT DETECTED Nasal B.pertussis DNA PCR NOT DETECTED Nasal C.pneumoniae (PCR) NOT DETECTED Gilberto Human Metapneumo PCR NOT DETECTED Nasal M.pneumoniae (PCR) NOT DETECTED Nasal SARS-CoV-2 (PCR) NOT DETECTED PD Medical Decision Making - ED course ED course: 32-year-old male presents emergency department for increased abdominal pain, nausea vomiting and abdominal cramping.Differentials include but are not limited to organ rejection, small bowel obstruction, diverticulitis, vascular catastrophe, pyelonephritis, appendicitis. CT chest abdomen pelvis was complete with contrast and reveals confirmation of bilateral lung transplant with no abnormalities, moderate hiatal hernia with GERD, couple small pulmonary nodules. Abdomen pelvis CT reveals significant stool load with distal small bowel and proximal large bowel given that he cystic fibrosis this is a distal intestinal obstructive syndrome. He also has mesenteric edema with small volume ascites. According to up-to-date for distal intestinal obstruction syndrome all patients are to have an NG tube to suction. We have placed an NG tube to suction and a total of 200 mL clear/brown fluid was extracted from abdomen. Chest x-ray was complete for confirmation of NG tube placement. I spoke with lung transplant Dr. With [facility] Dr. Sorto who says that these rarely needs surgery and to continue with the NG tube and that these usually spontaneously resolve. Given that we do not have the ability to do in- house tacro levels confirmed with lab patient will need to be sent to [facility] for further management given the fact that he is going to be n.p.o. at this NG tube and his tacro levels will need to be closely monitored. Hospitalist with [facility] has agreed to accept the patient accepting provider is Dr. Torres. ER boarding orders have been placed according to up-to-date Gastrografin is also a great way to start with increasing gut motility. He has taken all of his antirejection medications and I have gone over the patient's medication list with him and ordered them that they are scheduled with how he takes them at home. The only medication that we do not have is his Bactrim dosing as he takes Bactrim 40-80. I have placed an order for patient to take his on Bactrim. I have completed the tacro lab but this is a send out so will not be back for couple days. Patient is aware that he will be here boarding overnight until we can get a bed with [facility] hopefully sometime tomorrow. The original plan for Gastrografin was 100 mL but we only have 2, 30 mL Gastrografin's in house we will start with a total of 60 mL of Gastrografin Report has been given to Dr. Alvarez due to change of shift to be further managing the patient's care. Departure - Departure Disposition: 02 Transfer Acute Care Hosp Forms: PCP List
[2023-09-09 11:38] LABS: ALBUMIN 4.6 g/dL (3.2-5.5); ALKALINE PHOSPHATASE 81 IU/L (42-121); ALT ALANINE AMINOTRANSFERASE 27 IU/L (10-60); AST ASPARTATE AMINOTRANSFERASE 26 IU/L (10-42); BILIRUBIN,TOTAL 2.2 mg/dL (0.2-1.0); BUN - BLOOD UREA NITROGEN 17 mg/dL (6-20); CALCIUM 9.8 mg/dL (8.5-10.3); CARBON DIOXIDE - CO2 29 mmol/L (21-32); CHLORIDE 103 mmol/L (101-111); CREATININE 1.1 mg/dL (0.6-1.3); GFR - MDRD 78 (>89); GLUCOSE 103 mg/dL (74-104); LIPASE < 10 U/L (11-82); POTASSIUM 4.4 mmol/L (3.5-4.5); SODIUM 137 mmol/L (135-145); TOTAL PROTEIN 6.9 g/dL (6.4-8.9)
[2023-09-09] MEDS: ONDANSETRON 4 MG/2 ML VIAL IVP STA (11:48)
[2023-09-09] MEDS: HYDROmorphone 0.5 MG/0.5 ML SYRINGE IVP STA ×4 (11:48→18:14)
[2023-09-09] MEDS ORDERED: iohexoL-300 100 ML VIAL ONE (11:51)
[2023-09-09 11:55] LABS: BILIRUBIN,URINE NEGATIVE (NEGATIVE); CLARITY,URINE CLEAR (CLEAR); GLUCOSE, URINE (UA) NEGATIVE (NEGATIVE); KETONES,URINE (UA) 15 mg/dL (NEGATIVE); LEUKOCYTE ESTERASE, URINE NEGATIVE (NEGATIVE); NITRITE,URINE NEGATIVE (NEGATIVE); OCCULT BLOOD,URINE NEGATIVE (NEGATIVE); PROTEIN,URINE TRACE mg/dL (NEGATIVE); UROBILINOGEN,URINE 0.2 (NORMAL) E.U./dL (NORMAL)
--- NOTE | 2023-09-09 12:37 | CT Report ---
PROCEDURE: Abdomen/Pelvis W INDICATIONS: hx of lung transplant, severe epigastric pain. Cystic fibrosis. CONTRAST: Omni 300 100ml TECHNIQUE: After the administration of intravenous contrast, a CT scan of the abdomen and pelvis was performed. Images were recorded and evaluated at appropriate window settings. Reformats: coronal and sagittal. F or radiation dose reduction, the following was used: automated exposure control, adjustment of mA and /or kV according to patient size. COMPARISON: CT 12/06/2015. FINDINGS: Image quality: Diagnostic. Lower chest: Please see same day chest CT. Moderate hiatal hernia. Liver: No solid mass. Focal fat adjacent to the falciform ligament. Gallbladder and biliary tree: No radiopaque stones or wall thickening. No biliary dilation. Spleen: No splenomegaly. Pancreas: No pancreatic ductal dilation. Adrenals: No adrenal nodule. Kidneys and ureters: No hydronephrosis. No renal cystic lesion which requires follow up. No solid mas s. Stomach, bowel and peritoneum: Significant distention of distal small bowel with stool. Large proxima l colonic stool load present as well. Mesenteric edema, mild wall thickening of the small bowel, and small volume ascites. Lymph nodes: No central or retroperitoneal adenopathy. Vessels: No infrarenal aortic aneurysm. PELVIS Reproductive organs: Unremarkable. Bladder: No abnormal wall thickening, accounting for underdistention. Pelvic lymph nodes: No pelvic adenopathy by size criteria. Bones: No aggressive osseous abnormality. Convex right scoliosis. Other: No significant ventral or inguinal hernia. IMPRESSION: Significant stool load within the distal small bowel and proximal large bowel. In this patient with c ystic fibrosis, findings suggest distal intestinal obstructive syndrome. Mesenteric edema and small volume ascites is present, with mild small bowel wall thickening. Superimp osed enteritis not excluded in this setting. Above discussed with Melodie Costello DNP at the time of dictation. Reviewed by: Luis Manuel Lechuga MD on 09/09/2023 12:36 PM PDT Approved by: Luis Manuel Lechuga MD on 09/09/2023 12:36 PM PDT Station ID: [id number]
--- NOTE | 2023-09-09 12:41 | CT Report ---
PROCEDURE: Chest W INDICATIONS: abd pain with nausea and vomiting CONTRAST: Omni 300 100ml TECHNIQUE: After the administration of intravenous contrast, a CT scan of the chest was performed. Images were recorded and evaluated at appropriate window settings. Reformats: axial MIP of the chest, coronal and sagittal. For radiation dose reduction, the following was used: automated exposure control, adjustme nt of mA and/or kV according to patient size. COMPARISON: Radiograph 07/07/2019, CT 12/06/2015. FINDINGS: Image quality: Diagnostic. Chest wall and lower neck: No thyroid nodule which requires sonographic follow up. No axillary or sup raclavicular adenopathy by size. Lungs and pleura: No consolidation. No pleural effusions. No pneumothorax. A pair of 3 mm solid nodu les in the posterior right lower lobe (series 4, image 49/50). Bilateral lung transplant. Mediastinum: Heart size is normal. No pericardial effusion. No large vessel abnormality. No mediastin al adenopathy by size criteria. Suspected tracheal diverticulum along the posterior margin of the up per thoracic trachea. Moderate hiatal hernia with presumed gastroesophageal reflux. Bones: No aggressive osseous abnormality. Convex left scoliosis. Upper Abdomen: Please see same day abdominal CT. IMPRESSION: Bilateral lung transplant, without complication. No acute cardiopulmonary pathology. Moderate hiatal hernia with gastroesophageal reflux. A couple of small solid pulmonary nodules. Consider 12 month follow-up if this patient is at high ris k for developing lung cancer, per Fleischner Society guidelines. Reviewed by: Luis Manuel Lechuga MD on 09/09/2023 12:40 PM PDT Approved by: Luis Manuel Lechuga MD on 09/09/2023 12:40 PM PDT Station ID: [id number]
[2023-09-09 12:44] LABS: B. PARAPERTUSSIS- RESP PCR PAN NOT DETECTED; B. PERTUSSIS- RESP PCR PANEL NOT DETECTED; C. PNEUMONIAE- RESP PCR PANEL NOT DETECTED; CORONAVIRUS 229E-RESP PCR NOT DETECTED; CORONAVIRUS HKU1-RESP PCR NOT DETECTED; CORONAVIRUS NL63-RESP PCR NOT DETECTED; CORONAVIRUS OC43-RESP PCR NOT DETECTED; HUMAN METAPNEUMOVIRUS NOT DETECTED; INFLUENZA A- RESP PCR PANEL NOT DETECTED; INFLUENZA B - RESP PCR PANEL NOT DETECTED; M. PNEUMONIAE- RESP PCR PANEL NOT DETECTED; PARAINFLUENZA VIRUS 1 NOT DETECTED; PARAINFLUENZA VIRUS 2 NOT DETECTED; PARAINFLUENZA VIRUS 3 NOT DETECTED; PARAINFLUENZA VIRUS 4 NOT DETECTED; RHINOVIRUS/ENTEROVIRUS NOT DETECTED; RSV- RESP PCR PANEL NOT DETECTED; SARS-CoV-2 -RESP PCR PANEL NOT DETECTED
[2023-09-09] MEDS: iohexoL-300 100 ML VIAL IVP ONE (14:08)
[2023-09-09] MEDS ORDERED: HYDROmorphone 0.5 MG/0.5 ML SYRINGE IVP STA (14:29)
--- NOTE | 2023-09-09 15:09 | XRAY Report ---
PROCEDURE: Chest for Line Placement INDICATIONS: NG confirmation TECHNIQUE: One view of the chest was acquired. COMPARISON: Chest x-ray 07/07/2019. FINDINGS: Surgical changes and devices: NG tube distal tip projects over the distal esophagus. Multiple surgic al clips projecting over the mediastinum. Lungs and pleura: No pleural effusions or pneumothorax. Lungs are clear. Mediastinum: Mediastinal contours appear normal. Heart size is normal. Bones and chest wall: No suspicious bony lesions. Overlying soft tissues appear unremarkable. IMPRESSION: No acute cardiopulmonary process. NG tube tip projects over the distal esophagus. NG tube should be advanced several centimeters. Reviewed by: Liliya Gonzalez MD, PhD on 09/09/2023 3:08 PM PDT Approved by: Liliya Gonzalez MD, PhD on 09/09/2023 3:08 PM PDT Station ID: [id number]
[2023-09-09] MEDS: BUFFERED LIDOCAINE 10 ML SYRINGE SUBQ STA (18:15)
[2023-09-09] MEDS: TACROLIMUS 0.5 MG CAPSULE PO SCH (20:48)
[2023-09-09] MEDS ORDERED: TACROLIMUS 0.5 MG CAPSULE PO SCH (21:00)
[2023-09-09] MEDS: PANTOPRAZOLE 40 MG VIAL IV SCH (21:06)
[2023-09-09] MEDS: mycophenolate mofetiL 250 MG CAPSULE PO SCH (21:06)
[2023-09-09] MEDS: SODIUM CHLORIDE 0.9% 1,000 ML IV SCH (21:07)
[2023-09-09] MEDS: HYDROmorphone 0.5 MG/0.5 ML SYRINGE IVP PRN (21:30)
[2023-09-09] MEDS: DIATR MEGLU/DIATRIZOATE SODIUM 120 ML BOTTLE NG ONE (22:03)
[2023-09-09] MEDS: DIATRIZOATE MEGLU/DIATRIZO SOD 30 ML BOTTLE PO ONE (22:29)
--- NOTE | 2023-09-09 22:51 | XRAY Report ---
PROCEDURE: Chest for Line Placement INDICATIONS: Ng tube confirmation placement TECHNIQUE: One view of the chest was acquired. COMPARISON: Chest radiograph 09/09/2023 at 2:44 PM. FINDINGS: Surgical changes and devices: Enteric tube courses below the diaphragm with distal tubing projecting over the gastric body, however it is looped with an area of acute angle possibly reflecting a small kink. Lungs and pleura: No pleural effusions or pneumothorax. Lungs are clear. Mediastinum: Mediastinal contours appear normal. Heart size is normal. Bones and chest wall: No suspicious bony lesions. Overlying soft tissues appear unremarkable. IMPRESSION: Looped enteric tubing projecting over the region of the gastric body with possible small focal kink. Reviewed by: Aleaxndria Bain MD, PhD on 09/09/2023 10:49 PM PDT Approved by: Alexandria Bain MD, PhD on 09/09/2023 10:49 PM PDT Station ID: [id number]
[2023-09-10 04:58] LABS: BASOPHILS % (AUTO) 0.3 %; EOSINOPHILS # (AUTO) 0.1 10^3/uL (0.0-0.7); EOSINOPHILS % (AUTO) 0.7 %; HCT - HEMATOCRIT 44.4 % (42.0-52.0); HGB - HEMOGLOBIN 15.5 g/dL (14.0-18.0); LYMPHOCYTES # (AUTO) 1.1 10^3/uL (1.5-3.5); LYMPHOCYTES % (AUTO) 11.3 %; MEAN CORPUSCULAR HEMOGLOBIN 29.9 pg (27.0-31.0); MEAN CORPUSCULAR HGB CONC 34.9 g/dL (32.0-36.0); MEAN CORPUSCULAR VOLUME 85.7 fL (80.0-94.0); MEAN PLATELET VOLUME 9.8 fL (7.4-11.4); MONOCYTES # (AUTO) 0.7 10^3/uL (0.0-1.0); MONOCYTES % (AUTO) 7.6 %; NEUTROPHILS # (AUTO) 7.5 10^3/uL (1.5-6.6); NEUTROPHILS % (AUTO) 79.7 %; PLT - PLATELET COUNT 167 10^3/uL (130-450); RED BLOOD COUNT 5.18 10^6/uL (4.70-6.10); RED CELL DISTRIBUTION WIDTH 14.5 % (12.0-15.0); WHITE BLOOD COUNT 9.5 x10^3/uL (4.8-10.8)
[2023-09-10 05:38] LABS: CALCIUM 9.1 mg/dL (8.5-10.3); CREATININE 1.2 mg/dL (0.6-1.3); POTASSIUM 4.5 mmol/L (3.5-4.5)
[2023-09-10] MEDS: ENOXAPARIN 40 MG/0.4 ML SYRINGE SUBQ SCH (08:22)
[2023-09-10] MEDS: DEXAMETHASONE 10 MG/ML VIAL IVP SCH (08:23)
[2023-09-10] MEDS: TACROLIMUS 0.5 MG CAPSULE PO SCH (08:23)
[2023-09-10] MEDS ORDERED: PANTOPRAZOLE 40 MG VIAL IVP SCH (09:00)
[2023-09-10] MEDS ORDERED: mycophenolate mofetiL 250 MG CAPSULE PO SCH (09:00)
[2023-09-10] MEDS: PEG 3350/NA SULF,BICARB,CL/KCL 4,000 ML BOTTLE NG ONE (11:59)
[2023-09-10] MEDS: DIATR MEGLU/DIATRIZOATE SODIUM 120 ML BOTTLE PO ONE (12:32)
--- NOTE | 2023-09-10 15:50 | PHARMACY PROGRESS NOTE ---
- Best Possible Medication History Admit Date and Time: Processed by: Pharmacy Medications reviewed in ED?: Yes Medication History completed: Yes Patient Interview: Completed Secondary Source(s): Spouse/Significant other, Insurance records As the person ultimately responsible for medication therapy, providers are able to order a medication from an existing home medication list in [facility] via the "Reconcile Routine" prior to Confirmation of that medication by computer support analyst. Such practice is discouraged except when the physician, in their clinical judgment, deems that a medical need exists for a medication without regard to previous use.
[2023-09-10] MEDS: ONDANSETRON 4 MG/2 ML VIAL IVP PRN (19:48)
[2023-09-10] MEDS: SODIUM CHLORIDE 0.9% 1,000 ML IV SCH (21:05)
[2023-09-10] MEDS: HYDROmorphone 0.5 MG/0.5 ML SYRINGE IVP STA (21:53)
[2023-09-10] MEDS ORDERED: iohexoL-300 100 ML VIAL ONE (22:04)
--- NOTE | 2023-09-11 00:42 | CT Report ---
PROCEDURE: Abdomen/Pelvis W INDICATIONS: worsening symptoms, abdominal pain CONTRAST: Omni 300 100ml TECHNIQUE: After the administration of intravenous contrast, a CT scan of the abdomen and pelvis was performed. Images were recorded and evaluated at appropriate window settings. Reformats: coronal and sagittal. F or radiation dose reduction, the following was used: automated exposure control, adjustment of mA and /or kV according to patient size. COMPARISON: CT abdomen pelvis 09/09/2023. FINDINGS: Image quality: Diagnostic. Lower chest: Unremarkable. Liver: No solid mass. Gallbladder and biliary tree: No radiopaque stones or wall thickening. No biliary dilation. Spleen: No splenomegaly. Pancreas: No pancreatic ductal dilation. Adrenals: No adrenal nodule. Kidneys and ureters: No hydronephrosis. No renal cystic lesion which requires follow up. No solid mas s. Stomach, bowel and peritoneum: Moderate hiatal hernia. There is redemonstration of dilated small moriah l with areas containing stool. No discrete transition point identified. Similar colonic stool load. A s before there is mesenteric edema, mild small bowel wall thickening and small volume ascites. Enteri c tube is looped within the gastric body distal tip projecting towards the gastric fundus. Lymph nodes: No central or retroperitoneal adenopathy. Vessels: No infrarenal aortic aneurysm. PELVIS Reproductive organs: Unremarkable. Bladder: There is collapsed limiting evaluation.. Pelvic lymph nodes: No pelvic adenopathy by size criteria. Bones: No aggressive osseous abnormality. Acute vertebral body compression fracture. Other: No significant ventral or inguinal hernia. IMPRESSION: Compared to prior CT 09/09/2023, stable to mildly increased dilation of the distal small bowel with mil d small bowel wall thickening and small volume ascites. Findings may represent enteritis versus dista l intestinal obstructive syndrome given patient history of cystic fibrosis. Enteric tube is looped within the stomach with tip projecting towards the gastric fundus. Reviewed by: Alexandria Bain MD, PhD on 09/11/2023 12:40 AM PDT Approved by: Alexandria Bain MD, PhD on 09/11/2023 12:40 AM PDT Station ID: [id number]
[2023-09-11] MEDS: ACETAMINOPHEN 325 MG TABLET PO PRN (11:47)
[2023-09-11 12:59] LABS: BASOPHILS % (AUTO) 0.3 %; EOSINOPHILS % (AUTO) 0.3 %; HCT - HEMATOCRIT 36.9 % (42.0-52.0); HGB - HEMOGLOBIN 12.9 g/dL (14.0-18.0); LYMPHOCYTES # (AUTO) 0.3 10^3/uL (1.5-3.5); LYMPHOCYTES % (AUTO) 9.2 %; MEAN CORPUSCULAR VOLUME 85.8 fL (80.0-94.0); MEAN PLATELET VOLUME 10.1 fL (7.4-11.4); MONOCYTES # (AUTO) 0.2 10^3/uL (0.0-1.0); MONOCYTES % (AUTO) 4.6 %; NEUTROPHILS % (AUTO) 85.3 %; PLT - PLATELET COUNT 140 10^3/uL (130-450); RED CELL DISTRIBUTION WIDTH 14.5 % (12.0-15.0); WHITE BLOOD COUNT 3.5 x10^3/uL (4.8-10.8)
[2023-09-11 13:13] LABS: ALBUMIN 3.6 g/dL (3.2-5.5); ALBUMIN/GLOBULIN RATIO 1.5 (1.0-2.2); ALKALINE PHOSPHATASE 51 IU/L (42-121); ALT ALANINE AMINOTRANSFERASE 16 IU/L (10-60); AST ASPARTATE AMINOTRANSFERASE 16 IU/L (10-42); BILIRUBIN,TOTAL 1.3 mg/dL (0.2-1.0); BUN - BLOOD UREA NITROGEN 23 mg/dL (6-20); CALCIUM 8.5 mg/dL (8.5-10.3); CARBON DIOXIDE - CO2 23 mmol/L (21-32); CHLORIDE 109 mmol/L (101-111); GFR - MDRD 87 (>89); GLUCOSE 156 mg/dL (74-104); LIPASE < 10 U/L (11-82); MAGNESIUM 1.6 mg/dL (1.7-2.3); SODIUM 137 mmol/L (135-145)
[2023-09-11] MEDS ORDERED: polyethylene glycoL 3350 17 GM PACKET PO PRN (16:11)
[2023-09-11 16:21] VITALS: BP 120/85; O2SAT 100
--- NOTE | 2023-09-12 10:04 | ED Physician Documentation ---
ED Addendum - Addendum Addendum: 09/12/23 10:02 This 32-year-old male with a history of cystic fibrosis with left in my care overnight with a distal small bowel obstruction. He had been given Gastrografin and an NG tube was placed. Overnight he began to feel improved at the time of shift change he remained in the department anticipating a transfer to the [facility]. His care was turned over to Dr. Gilbert Perea with anticipation that transfer would occur or he may improve enough to be able to be discharged. 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 After removing her NG tube he appeared to be doing significantly better and have had multiple bowel movements and appeared to be back at baseline. Going home make sure that you are drinking plenty of fluids and staying very active to help your bowels to continue to move. Transplant team is recommending that you take MiraLAX daily hits 1 cup of powder with your preference of liquid to prevent from this happening again. They will be calling you about follow-up appointment as well as follow-up labs. Please come back to the emergency department for starting to feel the symptoms that you felt prior to coming into the emergency department, fevers or chills or any other concerning symptoms. Forms: PCP List Discharge Date/Time: 09/11/23 16:35
== END 2023-09-11 16:35 | disposition home or self-care (01) ==
LOC: ED 10:27
DX: E84.19 Cystic fibrosis with other intestinal manifestations (principal); Z94.2 Lung transplant status; Z79.899 Other long term (current) drug therapy
CPT/HCPCS: 36415; 71260; 74177; 80048; 80053; 80197; 81003; 83690; 83735; 84484; 85025; 87633; 93005; 96372; 96374; 96375; 96376; 99285; A9270; J1170; J1650; Q9963; Q9967; 81001; 87086

== ENCOUNTER 2023-09-16 08:01 | Outpatient (CLI) | payer OTHER ==
[2023-09-16 08:16] LABS: BASOPHILS # (AUTO) 0.1 10^3/uL (0.0-0.1); BASOPHILS % (AUTO) 0.6 %; EOSINOPHILS # (AUTO) 0.3 10^3/uL (0.0-0.7); EOSINOPHILS % (AUTO) 4.3 %; HCT - HEMATOCRIT 43.1 % (42.0-52.0); LYMPHOCYTES # (AUTO) 2.1 10^3/uL (1.5-3.5); LYMPHOCYTES % (AUTO) 27.4 %; MEAN CORPUSCULAR HEMOGLOBIN 29.5 pg (27.0-31.0); MEAN CORPUSCULAR HGB CONC 34.8 g/dL (32.0-36.0); MEAN CORPUSCULAR VOLUME 84.8 fL (80.0-94.0); MEAN PLATELET VOLUME 9.8 fL (7.4-11.4); MONOCYTES # (AUTO) 0.6 10^3/uL (0.0-1.0); MONOCYTES % (AUTO) 7.8 %; NEUTROPHILS # (AUTO) 4.6 10^3/uL (1.5-6.6); NEUTROPHILS % (AUTO) 59.4 %; PLT - PLATELET COUNT 193 10^3/uL (130-450); RED BLOOD COUNT 5.08 10^6/uL (4.70-6.10); RED CELL DISTRIBUTION WIDTH 13.8 % (12.0-15.0); WHITE BLOOD COUNT 7.7 x10^3/uL (4.8-10.8)
[2023-09-16 08:40] LABS: CALCIUM 9.9 mg/dL (8.5-10.3); POTASSIUM 4.2 mmol/L (3.5-4.5)
== END 2023-09-16 08:02 | disposition home or self-care (01) ==
LOC: LAB 08:01
PROVIDERS: ATTEND Internal Medicine
DX: Z94.2 Lung transplant status (principal)
CPT/HCPCS: 36415; 80048; 80197; 85025

== ENCOUNTER 2023-09-24 07:48 | Outpatient (CLI) | payer OTHER ==
[2023-09-24 08:15] LABS: CALCIUM 9.4 mg/dL (8.5-10.3); CREATININE 1.2 mg/dL (0.6-1.3); POTASSIUM 4.2 mmol/L (3.5-4.5)
== END 2023-09-24 07:49 | disposition home or self-care (01) ==
LOC: LAB 07:48
PROVIDERS: ATTEND Internal Medicine
DX: Z94.2 Lung transplant status (principal)
CPT/HCPCS: 36415; 80048; 80197

== ENCOUNTER 2023-11-07 07:53 | Outpatient (CLI) | payer OTHER ==
[2023-11-07 08:07] LABS: BASOPHILS % (AUTO) 0.7 %; EOSINOPHILS # (AUTO) 0.3 10^3/uL (0.0-0.7); EOSINOPHILS % (AUTO) 4.6 %; HCT - HEMATOCRIT 42.1 % (42.0-52.0); HGB - HEMOGLOBIN 14.7 g/dL (14.0-18.0); LYMPHOCYTES % (AUTO) 34.2 %; MEAN CORPUSCULAR HEMOGLOBIN 29.8 pg (27.0-31.0); MEAN CORPUSCULAR HGB CONC 34.9 g/dL (32.0-36.0); MEAN CORPUSCULAR VOLUME 85.4 fL (80.0-94.0); MEAN PLATELET VOLUME 9.6 fL (7.4-11.4); MONOCYTES # (AUTO) 0.5 10^3/uL (0.0-1.0); MONOCYTES % (AUTO) 8.1 %; NEUTROPHILS % (AUTO) 52.2 %; PLT - PLATELET COUNT 162 10^3/uL (130-450); RED BLOOD COUNT 4.93 10^6/uL (4.70-6.10); RED CELL DISTRIBUTION WIDTH 14.8 % (12.0-15.0); WHITE BLOOD COUNT 5.7 x10^3/uL (4.8-10.8)
[2023-11-07 08:19] LABS: CALCIUM 9.5 mg/dL (8.5-10.3); CREATININE 1.1 mg/dL (0.6-1.3)
[2023-11-07 14:28] LABS: POTASSIUM 4.5 mmol/L (3.5-4.5)
== END 2023-11-07 07:54 | disposition home or self-care (01) ==
LOC: LAB 07:53
PROVIDERS: ATTEND Internal Medicine
DX: Z09 Encounter for follow-up examination after completed treatment for conditions other than malignant neoplasm (principal); Z94.2 Lung transplant status
CPT/HCPCS: 36415; 80048; 80197; 85025

== ENCOUNTER 2023-11-08 17:34 | Emergency (ER) | payer OTHER ==
--- NOTE | 2023-11-08 19:38 | ED Physician Documentation ---
PD HPI SKIN - Stated complaint Stated Complaint: LT HAND LAC - Chief complaint Chief Complaint: Laceration - History obtained from History obtained from: Patient - Additional information Additional information: 33-year-old male presents with left index finger laceration. The patient was using a box knife to cut some carpet in his car to do an installation and he slipped and accidentally lacerated the dorsal surface of the left index finger near the base. He is able to flex and extend without difficulty. He states it was bleeding briskly at home and he put some stop bleed on it which has stopped the bleeding. He is unsure of his last tetanus. PD PAST MEDICAL HISTORY - Past Medical History Past Medical History: No Cardiovascular: None Respiratory: Cystic fibrosis Neuro: None Endocrine/Autoimmune: None GI: None : None HEENT: None Psych: None Musculoskeletal: None Derm: None - Past Surgical History Past Surgical History: Yes Derm: Other - Present Medications Home Medications: Ambulatory Orders Medication Instructions Recorded Confirmed Aspirin [Adult Low Dose Aspirin EC] 81 mg PO DAILY 05/14/19 09/10/23 Calcium Citrate 1,900 mg PO BID 05/14/19 09/10/23 Cholecalciferol (Vitamin D3) 2,000 unit PO BID 05/14/19 09/10/23 [Vitamin D3] Magnesium Oxide [Mag Ox] 800 mg ORAL BID 05/14/19 09/10/23 Omeprazole 20 mg PO QPM 05/14/19 09/10/23 Pravastatin [Pravachol] 20 mg PO QPM 05/14/19 09/10/23 Sulfamethoxazole/Trimethoprim 1 each PO QPM 05/14/19 09/10/23 [Bactrim 400-80 mg Tablet] Tacrolimus [Prograf] 1 mg PO QDAC 05/14/19 09/10/23 Vitamin B Complex 1 each PO DAILY 05/14/19 09/10/23 mycophenolate mofetiL 250 mg PO BID 05/14/19 09/10/23 [Mycophenolate Mofetil] predniSONE [Prednisone] 5 mg PO DAILY 05/14/19 09/10/23 Buspirone HCl 20 mg PO QDAC 09/10/23 09/10/23 Dextroamphetamine/Amphetamine 5 mg PO QDAC 09/10/23 09/10/23 [Adderall 10 mg Tablet] Dextroamphetamine/Amphetamine 15 mg PO QDAC 09/10/23 09/10/23 [Adderall Xr 10 mg Capsule] Escitalopram [Lexapro] 10 mg PO DAILY 09/10/23 09/10/23 Tacrolimus [Prograf] 1.5 mg PO HS 09/10/23 09/10/23 polyethylene glycoL 3350(BULK) 238 gm PO DAILY #1 each 09/11/23 [Miralax (Bulk)] - Allergies Allergies/Adverse Reactions: Allergies Allergy/AdvReac Type Severity Reaction Status Date / Time latex Allergy Unknown Verified 11/08/23 17:38 shellfish derived AdvReac Hives Verified 11/08/23 17:38 - Social History Does the pt smoke?: No Smoking Status: Never smoker Does the pt drink ETOH?: No Does the pt have substance abuse?: No - Immunizations Immunizations are current?: Yes - POLST Patient has POLST: No PD ED PE NORMAL - Vitals Vital signs reviewed: Yes - General General: Alert and oriented X 3, No acute distress, Well developed/nourished - Derm Derm: Normal color, Warm and dry, Other (There is a 3 cm u-shaped Laceration of the dorsal surface of the base of the left index finger. No tendon involvement.) - Extremities Extremities: No deformity, No tenderness to palpate, Normal ROM s pain Results - Vitals Vitals: Vital Signs - 24 hr 11/08/23 17:38 Temperature 36.8 C Heart Rate 100 Respiratory 16 Rate Blood Pressure 150/78 H O2 Saturation 98 Oxygen O2 Source Room air Procedures - Laceration (location) Finger left Length in cm: 3 Wound type: Curved Neurovascular status: Sensory intact, Motor intact, Vascular intact Tendon involvement: Tendon intact Anesthesia: Lidocaine 1% Wound preparation: Irrigated copiously NS Skin layer closure: Nylon, Sutures - enter # (6) Other: Patient tolerated well, No complications, Dressing applied, Tetanus booster given PD Medical Decision Making - ED course Complexity details: d/w patient ED course: 33-year-old male presented with a flap laceration of the left index finger after cutting with a box knife. He has approximately 3 cm flap on the dorsal surface of the left index finger which I recommended suture closure. We anesthetized locally and then had to irrigate and scrubbed thoroughly with chlorhexidine and normal saline as he had put stop bleed in the wound which had coagulated on the wound. This was all removed and then the wound was closed with 6 #4 point 0 nylon sutures. He was advised on home wound care instructions as well as return precautions for any signs of infection. He was given updated Tdap today. Departure - Departure Disposition: Home, Self Care Clinical Impression: Laceration of index finger Qualifiers: Encounter type: initial encounter Damage to nail status: without damage Foreign body presence: without foreign body Laterality: left Qualified Code(s): S61.211A - Laceration without foreign body of left index finger without damage to nail, initial encounter Condition: Good Instructions: ED Laceration All Comments: We put 6 sutures in your index finger. These will need to be removed in about 10 to 14 days. Keep the area clean with gentle soap and water but otherwise keep dry, do not soak. If there are any signs of infection return for follow- up. We did give you an updated Tdap today which is tetanus diphtheria and pertussis vaccines. Forms: PCP List
[2023-11-08] MEDS: LIDOCAINE 1% 2 ML VIAL SUBQ STA (20:11)
[2023-11-08] MEDS: TETANUS/DIPHTHERIA/PERTUSSIS 0.5 ML SYRINGE IM ONE (20:13)
[2023-11-08 20:53] VITALS: BP 143/78; O2SAT 99
== END 2023-11-08 20:44 | disposition home or self-care (01) ==
LOC: ED 17:34
DX: S61.211A Laceration without foreign body of left index finger without damage to nail, initial encounter (principal); W26.0XXA Contact with knife, initial encounter; Y93.89 Activity, other specified; Y92.810 Car as the place of occurrence of the external cause; Z23 Encounter for immunization; Z79.82 Long term (current) use of aspirin; Z79.899 Other long term (current) drug therapy
CPT/HCPCS: 12002; 90471; 99283

== ENCOUNTER 2023-12-24 22:57 | Emergency (ER) | payer OTHER ==
[2023-12-24 23:10] VITALS: BP 145/79; O2SAT 100
[2023-12-24] MEDS: OXYMETAZOLINE HCL 100 SPRAYS BOTTLE NAS STA (23:20)
--- NOTE | 2023-12-25 01:28 | ED Physician Documentation ---
PD HPI HEENT - Stated complaint Stated Complaint: EPISTAXIS - Chief complaint Chief Complaint: Heent - History obtained from History obtained from: Patient - Additional information Additional information: 33yM with pmh cf s/p lung transplant, BL nasal polypectomy, p/w BL epistaxis starting tonight spontaneously without resolution after a couple hours at home. not on AC. denies trauma PD PAST MEDICAL HISTORY - Past Medical History Cardiovascular: None Respiratory: Cystic fibrosis Neuro: None Endocrine/Autoimmune: None GI: None : None HEENT: None Psych: None Musculoskeletal: None Derm: None - Past Surgical History Past Surgical History: Yes Derm: Other - Present Medications Home Medications: Ambulatory Orders Medication Instructions Recorded Confirmed Aspirin [Adult Low Dose Aspirin EC] 81 mg PO DAILY 05/14/19 09/10/23 Calcium Citrate 1,900 mg PO BID 05/14/19 09/10/23 Cholecalciferol (Vitamin D3) 2,000 unit PO BID 05/14/19 09/10/23 [Vitamin D3] Magnesium Oxide [Mag Ox] 800 mg ORAL BID 05/14/19 09/10/23 Omeprazole 20 mg PO QPM 05/14/19 09/10/23 Pravastatin [Pravachol] 20 mg PO QPM 05/14/19 09/10/23 Sulfamethoxazole/Trimethoprim 1 each PO QPM 05/14/19 09/10/23 [Bactrim 400-80 mg Tablet] Tacrolimus [Prograf] 1 mg PO QDAC 05/14/19 09/10/23 Vitamin B Complex 1 each PO DAILY 05/14/19 09/10/23 mycophenolate mofetiL 250 mg PO BID 05/14/19 09/10/23 [Mycophenolate Mofetil] predniSONE [Prednisone] 5 mg PO DAILY 05/14/19 09/10/23 Buspirone HCl 20 mg PO QDAC 09/10/23 09/10/23 Dextroamphetamine/Amphetamine 5 mg PO QDAC 09/10/23 09/10/23 [Adderall 10 mg Tablet] Dextroamphetamine/Amphetamine 15 mg PO QDAC 09/10/23 09/10/23 [Adderall Xr 10 mg Capsule] Escitalopram [Lexapro] 10 mg PO DAILY 09/10/23 09/10/23 Tacrolimus [Prograf] 1.5 mg PO HS 09/10/23 09/10/23 polyethylene glycoL 3350(BULK) 238 gm PO DAILY #1 each 09/11/23 [Miralax (Bulk)] - Allergies Allergies/Adverse Reactions: Allergies Allergy/AdvReac Type Severity Reaction Status Date / Time latex Allergy Unknown Verified 12/24/23 23:00 shellfish derived AdvReac Hives Verified 12/24/23 23:00 - Social History Does the pt smoke?: No Smoking Status: Never smoker Does the pt drink ETOH?: No Does the pt have substance abuse?: No - Immunizations Immunizations are current?: Yes - POLST Patient has POLST: No PD ED PE NORMAL - Vitals Vital signs reviewed: Yes - General General: Alert and oriented X 3, No acute distress, Well developed/nourished - HEENT HEENT: Atraumatic, PERRL, EOMI, Other (BL nasal epistaxis) - Neck Neck: Supple, no meningeal sign Results - Vitals Vitals: Vital Signs - 24 hr 12/24/23 23:00 Temperature 36.8 C Heart Rate 90 Respiratory 16 Rate Blood Pressure 145/79 H O2 Saturation 100 Oxygen O2 Source Room air Procedures - Epistaxis - Minor Site: Both, Anterior Preparation: Clots removed, Afrin, Clamp / pressure applied Treatment: Packing inserted (packing soaked in afrin inserted for 45 min then removed to good effect) Other: Observed - no bleeding, Pt tolerated well, O2 sat WNL PD Medical Decision Making - ED course ED course: 33yM p/w BL spontaneous epistaxis X few hours, resolving in the ED with afrin administration, packing and clamps. Inspected after removal of packing and no visible bleeding areas identified. Patient discharged home with symptomatic care recs. return precautions given. Departure - Departure Disposition: 01 Home, Self Care Clinical Impression: Epistaxis Condition: Stable Instructions: ED Nosebleed Comments: You were seen in the emergency department for nosebleed. Please follow-up with your primary care provider and return to the emergency department if you have any new or worsening symptoms or other concerns.
== END 2023-12-25 01:30 | disposition home or self-care (01) ==
LOC: ED 22:57
DX: R04.0 Epistaxis (principal); Z79.899 Other long term (current) drug therapy; Z91.040 Latex allergy status; E84.9 Cystic fibrosis, unspecified; Z94.2 Lung transplant status
CPT/HCPCS: 30901; 99283; A9270

== ENCOUNTER 2024-01-09 07:32 | Outpatient (CLI) | payer OTHER ==
[2024-01-09 08:07] LABS: BASOPHILS % (AUTO) 0.7 %; EOSINOPHILS # (AUTO) 0.2 10^3/uL (0.0-0.7); EOSINOPHILS % (AUTO) 3.9 %; HCT - HEMATOCRIT 41.3 % (42.0-52.0); HGB - HEMOGLOBIN 14.4 g/dL (14.0-18.0); LYMPHOCYTES # (AUTO) 1.6 10^3/uL (1.5-3.5); LYMPHOCYTES % (AUTO) 29.5 %; MEAN CORPUSCULAR HGB CONC 34.9 g/dL (32.0-36.0); MONOCYTES # (AUTO) 0.5 10^3/uL (0.0-1.0); MONOCYTES % (AUTO) 8.9 %; NEUTROPHILS # (AUTO) 3.1 10^3/uL (1.5-6.6); NEUTROPHILS % (AUTO) 56.8 %; PLT - PLATELET COUNT 181 10^3/uL (130-450); RED CELL DISTRIBUTION WIDTH 14.5 % (12.0-15.0); WHITE BLOOD COUNT 5.4 x10^3/uL (4.8-10.8)
[2024-01-09 08:10] LABS: CALCIUM 9.5 mg/dL (8.5-10.3); CREATININE 1.1 mg/dL (0.6-1.3); POTASSIUM 3.7 mmol/L (3.5-4.5)
== END 2024-01-09 07:33 | disposition home or self-care (01) ==
LOC: LAB 07:32
PROVIDERS: ATTEND Internal Medicine
DX: Z94.2 Lung transplant status (principal)
CPT/HCPCS: 36415; 80048; 80197; 85025